=== PATIENT | female | born 1930 | race Asian ===

== ENCOUNTER 2018-05-26 21:33 | Inpatient (IN) | payer MEDICARE, MEDICAID ==
[~2018-05-26] VITALS: Ht 144.8 cm; Wt 59.0 kg
[2018-05-26] MEDS ORDERED: Albuterol ud Inhalation HHN ONE (22:00)
[2018-05-26] MEDS ORDERED: Ipratropium 0.02% Inh Soln 2.5ml UD HHN ONE (22:00)
[2018-05-26] MEDS ORDERED: CARDIZEM CD120 MG ORAL (22:02)
[2018-05-26] MEDS ORDERED: ASPIRIN EC81 MG ORAL (22:02)
[2018-05-26] MEDS ORDERED: NEXIUM40 MG ORAL (22:02)
[2018-05-26] MEDS ORDERED: METOPROLOL TART50 M1 ORAL (22:02)
[2018-05-26] MEDS ORDERED: ISOSORBIDE MONO30 M1 PO (22:02)
[2018-05-26] MEDS ORDERED: MONTELUKAST SOD10 MG ORAL (22:02)
[2018-05-26] MEDS ORDERED: AMBIEN5 MG ORAL (22:02)
[2018-05-26 22:14] LABS: BASOPHILS % (AUTO) 0.3 % (0.0-2.0); HEMATOCRIT 35.5 % (37.0-47.0); HEMOGLOBIN 12.9 G/DL (12.0-16.0); LYMPHOCYTES % (AUTO) 10.7 % (20.0-45.0); MEAN CORPUSCULAR VOLUME 90 FL (80-99); PLATELET COUNT 115 K/UL (150-450); RED BLOOD COUNT 3.93 M/UL (4.20-5.40); RED CELL DISTRIBUTION WIDTH 10.9 % (11.6-14.8)
[2018-05-26 22:27] LABS: INR 1.7 (0.9-1.1)
[2018-05-26 22:36] LABS: ANION GAP 15 mmol/L (5-15); BLOOD UREA NITROGEN 34 mg/dL (7-18); CARBON DIOXIDE 18 MMOL/L (21-32); CHLORIDE 89 MMOL/L (98-107); CREATININE 1.8 MG/DL (0.55-1.30); POTASSIUM 5.4 MMOL/L (3.5-5.1); SODIUM 122 MMOL/L (136-145)
--- NOTE | 2018-05-26 22:52 | Emergency Room Report ---
History of Present Illness General Chief Complaint: Dyspnea/Respdistress Source: Patient, Family Member Present Illness HPI This is an 87-year-old been increased female with a history of high blood pressure and questionable cardiac history. History is limited because her son is poor historian. He doesn't think she has any heart problem but based on her medication appeared that she has some type of coronary disease because she is taking isosorbide. Unknown atrial fibrillation history. Patient presents with chief complaint of shortness of breath. He brought the patient from home. [facility] Worse with exertion. No chest pain. She's been using inhaler without any relief. No edema. No nausea no vomiting. [place] like she can't catch her breath. Allergies: Coded Allergies: No Known Allergies (Unverified , 05/26/18) Patient History Past Medical History: see triage record, HTN Past Surgical History: other Pertinent Family History: none Social History: Denies: smoking Now: No Immunizations: other Reviewed Nursing Documentation: PMH: Agreed; PSxH: Agreed Nursing Documentation-PMH Past Medical History: No History, Except For Hx Hypertension: Yes Hx Asthma: Yes Hx Diabetes: Yes Review of Systems Eye: Denies: eye pain, blurred vision ENT: Denies: ear pain, nose congestion, throat swelling Respiratory: Reports: shortness of breath; Denies: cough Cardiovascular: Denies: chest pain, palpitations Gastrointestinal: Denies: abdominal pain, diarrhea, nausea, vomiting Musculoskeletal: Denies: back pain, joint pain Skin: Denies: rash Neurological: Denies: headache, numbness Endocrine: Denies: increased thirst, increased urine Hematologic/Lymphatic: Denies: easy bruising All Other Systems: negative except mentioned in HPI Physical Exam Vital Signs Date Time Temp Pulse Resp B/P (MAP) Pulse Ox O2 Delivery O2 Flow Rate FiO2 05/26/18 21:28 99.2 45 18 180/70 100 Simple Mask 99.1 05/26/18 22:28 2.0 28 vitals with high blood pressure Sp02 EP Interpretation: reviewed, normal General Appearance: well appearing, alert, mild distress Head: normocephalic, atraumatic Eyes: bilateral eye PERRL, bilateral eye EOMI ENT: hearing grossly normal, normal pharynx Neck: full range of motion, supple, no meningismus Respiratory: chest non-tender, normal breath sounds, rales Cardiovascular #1: no murmur, bradycardia, systolic murmur, irregularly irregular Gastrointestinal: normal bowel sounds, non tender, no mass, no organomegaly, no bruit, non-distended Musculoskeletal: back normal, normal range of motion Neurologic: alert, oriented x3 Psychiatric: mood/affect normal Skin: warm/dry Medical Decision Making Diagnostic Impression: Primary Impression: Acute exacerbation of CHF (congestive heart failure) Qualified Codes: I50.9 - Heart failure, unspecified Additional Impressions: Afib Qualified Codes: I48.91 - Unspecified atrial fibrillation Hypertension Qualified Codes: I10 - Essential (primary) hypertension Hyponatremia Hyperkalemia UTI (urinary tract infection) Qualified Codes: N30.00 - Acute cystitis without hematuria CKD (chronic kidney disease) Qualified Codes: N18.9 - Chronic kidney disease, unspecified EKG Diagnostic Results Rate: bradycardiac Rhythm: other - afib ST Segments: other - NSST changes Rhythm Strip Diag. Results Rhythm Strip Time: 22:52 EP Interpretation: yes Rate: 43 Rhythm: other - afib Chest X-Ray Diagnostic Results Chest X-Ray Diagnostic Results : Chest X-Ray Ordered: Yes # of Views/Limited/Complete: 1 View Indication: Shortness of Breath EP Interpretation: Yes Interpretation: no consolidation, other - CM with left effusion vs infiltrate Impression: Other - CM with left effusion Electronically Signed by: Kirit Banda MD Last Vital Signs Date Time Temp Pulse Resp B/P (MAP) Pulse Ox O2 Delivery O2 Flow Rate FiO2 05/26/18 22:38 48 20 100 Nasal Cannula 2.0 28 05/26/18 21:28 99.2 180/70 99.1 Status: improved Disposition: ADMITTED INPATIENT Condition: Serious KIRIT BANDA M.D. May 26, 2018 22:52
[2018-05-26 22:53] LABS: APPEARANCE,URINE CLEAR; BILIRUBIN, URINE 1+ (NEGATIVE); GLUCOSE, URINE (UA) NEGATIVE (NEGATIVE); KETONES,URINE 1+ (NEGATIVE); LEUKOCYTE ESTERASE ,URINE 1+ (NEGATIVE); NITRITE,URINE NEGATIVE (NEGATIVE); PH,URINE 5 (4.5-8.0); PROTEIN,URINE 2+ (NEGATIVE); UROBILINOGEN,URINE 4 MG/DL (0.0-1.0)
[2018-05-26 22:56] LABS: COLOR,URINE AMBER
[2018-05-26 23:01] LABS: ALANINE AMINOTRANSFERASE 512 U/L (12-78); ALBUMIN 3.7 G/DL (3.4-5.0); ALBUMIN/GLOBULIN RATIO 1.2 (1.0-2.7); ALKALINE PHOSPHATASE 82 U/L (46-116); ASPARTATE AMINO TRANSFERASE 971 U/L (15-37); CKMB 1.2 NG/ML (0.0-3.6); CREATINE KINASE 75 U/L (26-308)
[2018-05-26] MEDS ORDERED: cefTRIAXone 1 GM in NS 55 ML IVPB ONE (23:15)
[2018-05-26 23:40] VITALS: BP 103/59
[2018-05-27] MEDS ORDERED: Albuterol/Ipratropium 3ml neb INH PRN (05:45)
[2018-05-27] MEDS ORDERED: Nitroglycerin Subl 0.4mg tab SL PRN (05:45)
[2018-05-27] MEDS ORDERED: Zolpidem 5mg tab ORAL PRN (05:45)
[2018-05-27] MEDS ORDERED: Miralax 17gm pkt ORAL PRN (05:45)
[2018-05-27] MEDS ORDERED: Albuterol/Ipratropium 3ml neb INH SCH (07:00)
[2018-05-27 08:00] VITALS: BP 185/68
[2018-05-27] MEDS: Aspirin EC 81mg tab ORAL SCH (08:47)
[2018-05-27] MEDS: Montelukast 10mg tablet ORAL SCH (08:47)
[2018-05-27] MEDS: Docusate 100mg cap ORAL SCH ×2 (08:47→20:40)
[2018-05-27] MEDS: Imdur 30mg tab ORAL SCH (08:47)
[2018-05-27] MEDS: Heparin 5000 units/ml inj SUBQ SCH ×2 (08:51→20:40)
[2018-05-27] MEDS ORDERED: Aspirin Baby 81mg ORAL SCH (09:00)
--- NOTE | 2018-05-27 09:28 | Diagnostic Imaging Report ---
Indication: Shortness of breath Technique: One view of the chest Comparison: none Findings: The heart is enlarged. The left costophrenic angle is obscured, pleural effusion possible. The remainder the lungs and pleural spaces are clear. The thoracic aorta is tortuous, calcified, ectatic and possibly aneurysmal Impression: Possible left pleural effusion Mild cardiomegaly Ectatic and possibly aneurysmal thoracic aorta. Consider CT for further evaluation if clinically indicated
[2018-05-27 11:38] LABS: ANION GAP 10 mmol/L (5-15); BLOOD UREA NITROGEN 27 mg/dL (7-18); CALCIUM 9.1 MG/DL (8.5-10.1); CARBON DIOXIDE 29 MMOL/L (21-32); CHLORIDE 92 MMOL/L (98-107); CREATININE 1.2 MG/DL (0.55-1.30); POTASSIUM 3.7 MMOL/L (3.5-5.1); SODIUM 130 MMOL/L (136-145)
[2018-05-27 12:00] VITALS: BP 169/58
[2018-05-27] MEDS: cefTRIAXone 1 GM in D5W 55 ML IVPB SCH (12:18)
[2018-05-27] MEDS ORDERED: Isovue-300 100ml vial INJ PRN ×2 (12:30→12:45)
--- NOTE | 2018-05-27 12:37 | Cardiac Electrophysiology PN ---
Subjective Subjective [id number] Objective Last 24 Hour Vital Signs Date Time Temp Pulse Resp B/P (MAP) Pulse Ox O2 Delivery O2 Flow Rate FiO2 05/27/18 12:00 97.9 64 20 169/58 (95) 99 97.9 05/27/18 09:53 Nasal Cannula 2.0 05/27/18 09:33 99 Nasal Cannula 2.0 28 05/27/18 09:32 Nasal Cannula 2.0 28 05/27/18 08:47 185/68 05/27/18 08:00 98.2 67 20 185/68 (107) 98 98.2 05/27/18 08:00 64 05/27/18 03:47 65 05/27/18 03:15 Nasal Cannula 2.0 05/27/18 01:38 97.0 48 22 154/57 99 Nasal Cannula 2.0 05/26/18 23:50 41 22 Nasal Cannula 2.0 05/26/18 23:40 97.0 41 22 103/59 97 Nasal Cannula 2.0 97.0 05/26/18 22:38 48 20 100 Nasal Cannula 2.0 28 05/26/18 22:28 48 21 Nasal Cannula 2.0 28 05/26/18 22:28 48 21 98 Nasal Cannula 2.0 28 05/26/18 21:28 99.2 45 18 180/70 100 Simple Mask 99.1 Intake and Output 05/26/18 05/27/18 19:00 07:00 Intake Total 205 ml Balance 205 ml Intake Oral 100 ml IV Total 105 ml # Voids 3 Laboratory Tests Test 05/26/18 21:48 05/26/18 22:10 05/27/18 11:00 White Blood Count 12.0 K/UL (4.8-10.8) H Red Blood Count 3.93 M/UL (4.20-5.40) L Hemoglobin 12.9 G/DL (12.0-16.0) Hematocrit 35.5 % (37.0-47.0) L Mean Corpuscular Volume 90 FL (80-99) Mean Corpuscular Hemoglobin 32.8 PG (27.0-31.0) H Mean Corpuscular Hemoglobin Concent 36.2 G/DL (32.0-36.0) H Red Cell Distribution Width 10.9 % (11.6-14.8) L Platelet Count 115 K/UL (150-450) L Mean Platelet Volume 7.5 FL (6.5-10.1) Neutrophils (%) (Auto) 82.0 % (45.0-75.0) H Lymphocytes (%) (Auto) 10.7 % (20.0-45.0) L Monocytes (%) (Auto) 7.0 % (1.0-10.0) Eosinophils (%) (Auto) 0.0 % (0.0-3.0) Basophils (%) (Auto) 0.3 % (0.0-2.0) Prothrombin Time 17.6 SEC (9.30-11.50) H Prothromb Time International Ratio 1.7 (0.9-1.1) H Activated Partial Thromboplast Time 34 SEC (23-33) H Sodium Level 122 MMOL/L (136-145) L 130 MMOL/L (136-145) L Potassium Level 5.4 MMOL/L (3.5-5.1) H 3.7 MMOL/L (3.5-5.1) Chloride Level 89 MMOL/L (98-107) L 92 MMOL/L (98-107) L Carbon Dioxide Level 18 MMOL/L (21-32) L 29 MMOL/L (21-32) Anion Gap 15 mmol/L (5-15) 10 mmol/L (5-15) Blood Urea Nitrogen 34 mg/dL (7-18) H 27 mg/dL (7-18) H Creatinine 1.8 MG/DL (0.55-1.30) H 1.2 MG/DL (0.55-1.30) Estimat Glomerular Filtration Rate mL/min (>60) mL/min (>60) Glucose Level 125 MG/DL (74-106) H 122 MG/DL (74-106) H Calcium Level 9.0 MG/DL (8.5-10.1) 9.1 MG/DL (8.5-10.1) Total Bilirubin 1.0 MG/DL (0.2-1.0) Aspartate Amino Transf (AST/SGOT) 971 U/L (15-37) H Alanine Aminotransferase (ALT/SGPT) 512 U/L (12-78) H Alkaline Phosphatase 82 U/L (46-116) Total Creatine Kinase 75 U/L (26-308) Creatine Kinase MB 1.2 NG/ML (0.0-3.6) Creatine Kinase MB Relative Index 1.6 Troponin I 0.066 ng/mL (0.000-0.056) Pro-B-Type Natriuretic Peptide 93234 pg/mL (0-125) H Total Protein 6.9 G/DL (6.4-8.2) Albumin 3.7 G/DL (3.4-5.0) Globulin 3.2 g/dL Albumin/Globulin Ratio 1.2 (1.0-2.7) Urine Color My Urine Appearance Clear Urine pH 5 (4.5-8.0) Urine Specific [place] 1.025 (1.005-1.035) Urine Protein 2+ (NEGATIVE) H Urine Glucose (UA) Negative (NEGATIVE) Urine Ketones 1+ (NEGATIVE) H Urine Blood 1+ (NEGATIVE) H Urine Nitrite Negative (NEGATIVE) Urine Bilirubin 1+ (NEGATIVE) H Urine Ictotest Negative (NEGATIVE) Urine Urobilinogen 4 MG/DL (0.0-1.0) H Urine Leukocyte Esterase 1+ (NEGATIVE) H Urine RBC 5-10 /HPF (0 - 2) H Urine WBC 0-2 /HPF (0 - 2) Urine Squamous Epithelial Cells Occasional /LPF Urine Bacteria Moderate /HPF (NONE) H Microbiology Date/Time Source Procedure Growth Status 05/26/18 22:10 Urine,Clean Catch Urine Culture - Preliminary NO GROWTH Resulted Faisal Levy MD May 27, 2018 12:37
--- NOTE | 2018-05-27 12:40 | History & Physical ---
History and Physical History & Physicial Nba Hilario MD May 27, 2018 12:40
[2018-05-27] MEDS ORDERED: Promethazine/Codeine 5ml UD ORAL PRN (13:15)
--- NOTE | 2018-05-27 13:25 | Consultation ---
History of Present Illness General Date patient seen: May 27, 2018 Chief Complaint: Dyspnea/Respdistress Present Illness HPI 87-year-old female with hx of HTN, CAD, presented to ER with chief complaint of shortness of breath with some productive cough Worse with exertion. No chest pain. She's been using inhaler without any relief. Her systolic BP was 180 on presentation. She had mild leukocytosis, otherwise she looked comfortable. Allergies: Coded Allergies: No Known Allergies (Unverified , 05/26/18) Medication History Scheduled Aspirin Ec* (Aspirin Ec*), 81 MG ORAL DAILY, (Reported) Diltiazem Hcl* (Cardizem Cd*), 120 MG ORAL DAILY, (Reported) Esomeprazole Magnesium (Nexium), 40 MG ORAL DAILY, (Reported) Isosorbide Mononitrate (Isosorbide Mononitrate Er), 30 MG PO DAILY, (Reported) Metoprolol Tartrate* (Metoprolol Tartrate*), 50 MG ORAL DAILY, (Reported) Montelukast Sodium* (Montelukast Sodium*), 10 MG ORAL DAILY, (Reported) Scheduled PRN Zolpidem Tartrate* (Ambien*), 5 MG ORAL BEDTIME PRN for Insomnia, (Reported) Patient History Healthcare decision maker Resuscitation status Full Code Advanced Directive on File No Past Medical/Surgical History Past Medical/Surgical History: (1) CKD (chronic kidney disease) (2) Afib (3) Hypertension Review of Systems Constitutional: Reports: no symptoms Eye: Reports: no symptoms ENT: Reports: no symptoms Physical Exam General Appearance: WD/WN Lines, tubes and drains: peripheral HEENT: normocephalic, atraumatic Neck: non-tender, normal alignment Respiratory/Chest: chest wall non-tender, lungs clear Breasts: no masses Cardiovascular/Chest: normal peripheral pulses Abdomen: normal bowel sounds, non tender Extremities: normal range of motion Last 24 Hour Vital Signs Date Time Temp Pulse Resp B/P (MAP) Pulse Ox O2 Delivery O2 Flow Rate FiO2 05/27/18 12:00 97.9 64 20 169/58 (95) 99 97.9 05/27/18 09:53 Nasal Cannula 2.0 05/27/18 09:33 99 Nasal Cannula 2.0 28 05/27/18 09:32 Nasal Cannula 2.0 28 05/27/18 08:47 185/68 05/27/18 08:00 98.2 67 20 185/68 (107) 98 98.2 05/27/18 08:00 64 05/27/18 03:47 65 05/27/18 03:15 Nasal Cannula 2.0 05/27/18 01:38 97.0 48 22 154/57 99 Nasal Cannula 2.0 05/26/18 23:50 41 22 Nasal Cannula 2.0 05/26/18 23:40 97.0 41 22 103/59 97 Nasal Cannula 2.0 97.0 05/26/18 22:38 48 20 100 Nasal Cannula 2.0 28 05/26/18 22:28 48 21 Nasal Cannula 2.0 28 05/26/18 22:28 48 21 98 Nasal Cannula 2.0 28 05/26/18 21:28 99.2 45 18 180/70 100 Simple Mask 99.1 Intake and Output 05/26/18 05/27/18 19:00 07:00 Intake Total 205 ml Balance 205 ml Intake Oral 100 ml IV Total 105 ml # Voids 3 Laboratory Tests Test 05/26/18 21:48 05/26/18 22:10 05/27/18 11:00 White Blood Count 12.0 K/UL (4.8-10.8) H Red Blood Count 3.93 M/UL (4.20-5.40) L Hemoglobin 12.9 G/DL (12.0-16.0) Hematocrit 35.5 % (37.0-47.0) L Mean Corpuscular Volume 90 FL (80-99) Mean Corpuscular Hemoglobin 32.8 PG (27.0-31.0) H Mean Corpuscular Hemoglobin Concent 36.2 G/DL (32.0-36.0) H Red Cell Distribution Width 10.9 % (11.6-14.8) L Platelet Count 115 K/UL (150-450) L Mean Platelet Volume 7.5 FL (6.5-10.1) Neutrophils (%) (Auto) 82.0 % (45.0-75.0) H Lymphocytes (%) (Auto) 10.7 % (20.0-45.0) L Monocytes (%) (Auto) 7.0 % (1.0-10.0) Eosinophils (%) (Auto) 0.0 % (0.0-3.0) Basophils (%) (Auto) 0.3 % (0.0-2.0) Prothrombin Time 17.6 SEC (9.30-11.50) H Prothromb Time International Ratio 1.7 (0.9-1.1) H Activated Partial Thromboplast Time 34 SEC (23-33) H Sodium Level 122 MMOL/L (136-145) L 130 MMOL/L (136-145) L Potassium Level 5.4 MMOL/L (3.5-5.1) H 3.7 MMOL/L (3.5-5.1) Chloride Level 89 MMOL/L (98-107) L 92 MMOL/L (98-107) L Carbon Dioxide Level 18 MMOL/L (21-32) L 29 MMOL/L (21-32) Anion Gap 15 mmol/L (5-15) 10 mmol/L (5-15) Blood Urea Nitrogen 34 mg/dL (7-18) H 27 mg/dL (7-18) H Creatinine 1.8 MG/DL (0.55-1.30) H 1.2 MG/DL (0.55-1.30) Estimat Glomerular Filtration Rate mL/min (>60) mL/min (>60) Glucose Level 125 MG/DL (74-106) H 122 MG/DL (74-106) H Calcium Level 9.0 MG/DL (8.5-10.1) 9.1 MG/DL (8.5-10.1) Total Bilirubin 1.0 MG/DL (0.2-1.0) Aspartate Amino Transf (AST/SGOT) 971 U/L (15-37) H Alanine Aminotransferase (ALT/SGPT) 512 U/L (12-78) H Alkaline Phosphatase 82 U/L (46-116) Total Creatine Kinase 75 U/L (26-308) Creatine Kinase MB 1.2 NG/ML (0.0-3.6) Creatine Kinase MB Relative Index 1.6 Troponin I 0.066 ng/mL (0.000-0.056) Pro-B-Type Natriuretic Peptide 98134 pg/mL (0-125) H Total Protein 6.9 G/DL (6.4-8.2) Albumin 3.7 G/DL (3.4-5.0) Globulin 3.2 g/dL Albumin/Globulin Ratio 1.2 (1.0-2.7) Urine Color My Urine Appearance Clear Urine pH 5 (4.5-8.0) Urine Specific [place] 1.025 (1.005-1.035) Urine Protein 2+ (NEGATIVE) H Urine Glucose (UA) Negative (NEGATIVE) Urine Ketones 1+ (NEGATIVE) H Urine Blood 1+ (NEGATIVE) H Urine Nitrite Negative (NEGATIVE) Urine Bilirubin 1+ (NEGATIVE) H Urine Ictotest Negative (NEGATIVE) Urine Urobilinogen 4 MG/DL (0.0-1.0) H Urine Leukocyte Esterase 1+ (NEGATIVE) H Urine RBC 5-10 /HPF (0 - 2) H Urine WBC 0-2 /HPF (0 - 2) Urine Squamous Epithelial Cells Occasional /LPF Urine Bacteria Moderate /HPF (NONE) H Microbiology Date/Time Source Procedure Growth Status 05/26/18 22:10 Urine,Clean Catch Urine Culture - Preliminary NO GROWTH Resulted Height (Feet): 4 Height (Inches): 9.00 Weight (Pounds): 130 Medications Current Medications Medications (Trade) Dose Ordered Sig/Benedict Route PRN Reason Start Time Stop Time Status Last Admin Dose Admin Acetaminophen (Tylenol) 650 mg Q4H PRN ORAL Mild Pain (Pain Scale 1-3) 05/27/18 05:45 06/26/18 05:44 Albuterol/ Ipratropium (Albuterol/ Ipratropium) 3 ml Q4H PRN INH Shortness of Breath 05/27/18 05:45 06/01/18 05:44 Albuterol/ Ipratropium (Albuterol/ Ipratropium) 3 ml Q8HRT INH 05/27/18 07:00 06/01/18 06:59 Aspirin (Ecotrin) 81 mg DAILY ORAL 05/27/18 09:00 06/26/18 08:59 05/27/18 08:47 Barium Sulfate (Readi-Cat 2) 450 ml NOW PRN ORAL Radiology Procedure 05/27/18 12:30 05/29/18 12:28 Bisacodyl (Dulcolax) 10 mg DAILYPRN PRN RECTAL Constipation 05/27/18 05:45 06/26/18 05:44 Ceftriaxone Sodium 1 gm/ Dextrose 55 ml @ 110 mls/hr DAILY IVPB 05/27/18 12:30 06/03/18 12:29 05/27/18 12:18 Dextrose (Dextrose 50%) 25 ml STAT PRN IV Hypoglycemia 05/27/18 05:45 06/26/18 05:44 Dextrose (Dextrose 50%) 50 ml STAT PRN IV Hypoglycemia 05/27/18 05:45 06/26/18 05:44 Diltiazem HCl (Cardizem) 30 mg EVERY 8 HOURS ORAL 05/27/18 14:00 06/26/18 13:59 Docusate Sodium (Colace) 100 mg EVERY 12 HOURS ORAL 05/27/18 09:00 06/26/18 08:59 05/27/18 08:47 Furosemide (Lasix) 40 mg DAILY IV 05/27/18 09:00 06/26/18 08:59 05/27/18 08:47 Heparin Sodium (Porcine) (Heparin 5000 units/ml) 5,000 units EVERY 12 HOURS SUBQ 05/27/18 09:00 06/26/18 08:59 Hydralazine HCl (Apresoline) 10 mg Q6H PRN IV For High Blood Pressure 05/27/18 12:15 06/26/18 12:14 Iopamidol (Isovue-300 100ml) 100 ml NOW PRN INJ Radiology Procedure 05/27/18 12:30 05/29/18 12:29 Iopamidol (Isovue-300 100ml) 100 ml NOW PRN INJ Radiology Procedure 05/27/18 12:45 05/29/18 12:38 Irbesartan (Avapro) 75 mg DAILY ORAL 05/27/18 12:45 06/26/18 12:44 Isosorbide Mononitrate (Imdur) 30 mg DAILY ORAL 05/27/18 09:00 06/26/18 08:59 05/27/18 08:47 Montelukast Sodium (Singulair) 10 mg DAILY ORAL 05/27/18 09:00 06/26/18 08:59 05/27/18 08:47 Nitroglycerin (Ntg) 0.4 mg Q5M PRN SL Prn Chest Pain 05/27/18 05:45 06/26/18 05:44 Ondansetron HCl (Zofran) 4 mg Q6H PRN IVP Nausea & Vomiting 05/27/18 05:45 06/26/18 05:44 Pantoprazole (Protonix) 40 mg DAILY ORAL 05/27/18 09:00 06/26/18 08:59 05/27/18 08:47 Polyethylene Glycol (Miralax) 17 gm DAILYPRN PRN ORAL Constipation 05/27/18 05:45 06/26/18 05:44 Zolpidem Tartrate (Ambien) 5 mg BEDTIME PRN ORAL Insomnia 05/27/18 05:45 06/03/18 05:44 Assessment/Plan Problem List: (1) Hypertensive emergency ICD Codes: I16.1 - Hypertensive emergency SNOMED: 923151551324049 (2) Acute bronchitis ICD Codes: J20.9 - Acute bronchitis, unspecified SNOMED: 84041160 (3) Hyponatremia ICD Codes: E87.1 - Hypo-osmolality and hyponatremia SNOMED: 05622541 (4) Hypertension ICD Codes: I10 - Essential (primary) hypertension SNOMED: 78111208 Qualifiers: Qualified Codes: I10 - Essential (primary) hypertension Assessment/Plan respiratory treatment check sputum titrate fio2 to sat of 92% iv abx check echo dvt prophylaxis f/u BNP hyponatremia w/u Tyson Vincent MD May 27, 2018 13:25
[2018-05-27] MEDS: dilTIAZem HCl 30mg tab ORAL SCH ×2 (13:59→21:01)
--- NOTE | 2018-05-27 14:45 | Diagnostic Imaging Report ---
Indication: Increased renal function tests Technique: Grayscale and duplex images of the kidneys, retroperitoneum, and bladder were obtained. Comparison: none Findings: Right kidney measures 9.2 cm in length. Left kidney measures 11.1 cm in length. Both kidneys demonstrate normal echogenicity. No hydronephrosis. Within the left renal sinus, nonshadowing echogenic focus measures 11 mm in diameter. Normal inferior vena cava. Bladder is distended prevoid, prevoid bladder volume calculated at 421 mL. 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
[2018-05-27 16:00] VITALS: BP 176/60
[2018-05-27] MEDS ORDERED: BENICAR40 MG ORAL (16:43)
[2018-05-27] MEDS ORDERED: CRESTOR10 M1 ORAL (16:43)
[2018-05-27] MEDS ORDERED: CLONIDINE HCL0.2 MG PO (16:43)
--- NOTE | 2018-05-27 17:00 | Diagnostic Imaging Report ---
INDICATION: Abdominal pain, abdominal tenderness, shortness of breath TECHNIQUE: Patient ingested enteric contrast. IV administration nonionic contrast Spiral acquisitions obtained through the Multiplanar reconstructions were generated. Total dose length product 1206.6 mGycm. CTDIvol(s) 16.65,12.72 mGy. Radiation dose was minimized using automated exposure control COMPARISON: none FINDINGS: Chest: Lungs demonstrate mild interstitial prominence, probably on the basis of senescent changes. No focal airspace consolidation. No effusions. The heart is enlarged, demonstrating four-chamber cardiomegaly. The ascending thoracic aorta is ectatic bordering the proximal, measuring up to 4.7 cm in diameter. The aortic arch is borderline aneurysmal, measuring up to 4 cm. The descending thoracic aorta is ectatic but not frankly aneurysmal. No evidence of dissection. No evidence of rupture or leakage. There is possibly stenosis of the downstream left innominate vein. As result, numerous mediastinal collateral vessels are noted as well as less numerous chest wall collateral vessels. The main pulmonary artery is dilated, measuring 4.1 cm in diameter. No pericardial effusion. No mediastinal or hilar mass or adenopathy. Unremarkable esophagus. The bones demonstrate degenerative spondylosis changes. Abdomen pelvis: No evidence of abdominal aortic aneurysm or dissection. The gallbladder is surgically absent. Bile ducts are nondilated. The liver is unremarkable. The pancreas is somewhat atrophic. The spleen, adrenals are unremarkable. The kidneys demonstrate bilateral subcentimeter low-attenuation lesions which are too small to characterize. There is possibly some scarring of the left kidney. No retroperitoneal or mesenteric mass or adenopathy. The uterus demonstrates arcuate artery calcifications. No pelvic mass or adenopathy. The bladder is distended The rectum is mildly distended with stool. There are a few scattered colonic diverticula. No evidence of diverticulitis. The appendix is normal. No small bowel distention. Contrast has traversed the entirety of the small bowel and reached the cecum. No small bowel wall thickening. No free or loculated intraperitoneal gas or fluid. The stomach and duodenum are unremarkable. The bones demonstrate degenerative spondylosis changes. IMPRESSION: No definite acute thoracic process. Borderline aneurysmal dilatation of the ascending thoracic aorta and aortic arch. No evidence of dissection, leakage or rupture Possible stenosis of the downstream left innominate vein, with some collateral vessel formation Dilated main pulmonary artery, consistent with pulmonary arterial hypertension Cardiomegaly No definite acute abdominal or pelvic process Distended bladder Mild rectal fecal distention, could represent very early rectal fecal impaction Colonic diverticulosis. No evidence of diverticulitis Incidental findings as noted, including degenerative spondylosis, prior cholecystectomy, somewhat atrophic pancreas, too small to characterize bilateral subcentimeter low-attenuation renal lesions (most likely simple cysts, no further follow-up necessary) The CT scanner at [facility] is accredited by the [employer] and the scans are performed using protocols designed to limit radiation exposure to as low as reasonably achievable to attain images of sufficient resolution adequate for diagnostic evaluation.
--- NOTE | 2018-05-27 17:30 | Consultation ---
DATE OF CONSULTATION: 05/27/2018 CARDIOLOGY CONSULTATION CONSULTING PHYSICIAN: Faisal Levy M.D. REFERRING PHYSICIAN: Nba Hilario M.D. REASON FOR CONSULTATION: Nausea, hypertension, and atrial fibrillation. HISTORY OF PRESENT ILLNESS: The patient is an 87-year-old lady with history of hypertension, questionable cardiac history, was brought into the emergency room for abdominal pain and shortness of breath and lower extremity edema. The patient and the daughter are not aware of prior history of atrial fibrillation or coronary artery disease or congestive heart failure. The patient is taking metoprolol and Cardizem as well as isosorbide and aspirin. In the emergency room, the patient was found to be in atrial fibrillation with slow ventricular response. The patient was admitted and a Cardiology consultation was obtained for further evaluation and management. REVIEW OF SYSTEMS: Review of systems was negative other than what is mentioned in the history of present illness except for abdominal pain. PAST MEDICAL HISTORY: 1. History of hypertension. 2. Diabetes. 3. Asthma. 4. Questionable cardiac history. FAMILY HISTORY: Noncontributory. SOCIAL HISTORY: She lives at home. Does not smoke or drink alcohol. PHYSICAL EXAMINATION: VITAL SIGNS: Blood pressure 180/70, pulse is 45, respirations 18 and she is afebrile. HEAD AND NECK: Shows no JVD. LUNGS: Clear. CARDIOVASCULAR: Shows irregular S1 and S2 and bradycardic. ABDOMEN: Soft. EXTREMITIES: A 1+ pitting edema. LABORATORY AND DIAGNOSTIC DATA: Labs show white count 12, hemoglobin 12.9, hematocrit 35, and platelet count of 115,000. Sodium 130, potassium 3.7, BUN of 27, creatinine 1.2 and glucose 122. Troponin is 0.066. Initial BUN was 35 and creatinine 1.8. ASSESSMENT AND PLAN: 1. Troponin elevation. It could be due to renal failure. the patient does not have any chest pain. However, the patient's EKG showed some repolarization abnormality. We will completely rule out RI protocol. We will get an echocardiogram for further evaluation. 2. Atrial fibrillation with slow ventricular response. Heart rate in the 40s. I will discontinue Cardizem. Continue the patient on low-dose beta-val. We will watch the patient on telemetry. The patient would need anticoagulation. 3. Elevated BNP of more than 10,000. Again, echocardiogram is pending. I will start the patient on Lasix 40 mg IV daily. 4. Hypertension. Continue Lasix, Imdur, and I will add Norvasc to her medical regimen. I will hold off on calcium channel-val. We will hold off on Cardizem. 5. Abdominal pain. 6. Urinary tract infection, on IV antibiotics. Thank you very much, Dr. Hilario, for allowing me to participate in the care of this patient. Please do not hesitate to contact me for any questions regarding my evaluation. Faisal Levy M.D. DR: PAL JOB#: [id number] CC:
--- NOTE | 2018-05-27 17:45 | History and Physical Report ---
DATE OF ADMISSION: 05/26/2018 CHIEF COMPLAINT: Shortness of breath, dizziness and epigastric pain. HISTORY OF PRESENT ILLNESS: This is an 87-year-old Turkish female with past medical history significant for hypertension, cardiac arrhythmias, who has presented to the emergency room accompanied with the family member, complained about the syncopal episode. The patient has been having abdominal pain on and off associated with nausea and vomiting for a month. She has been taking Nexium, but has not been helpful. Pain mostly located in the epigastric area associated with shortness of breath. Two days ago, she had another episode of abdominal pain associated with worsening of breathing pattern and it resolved however yesterday, got exacerbated again. History is very limited secondary to the patient's status. She has poor historian as well as family member, daughter and son does not know much about her history. Pain started in [place], worsening with exertion and no chest pain. She has been using inhaler without any relief. No edema, nausea or vomiting at this time. However, she stated she cannot breath. Shortly after initial evaluation in the emergency, the patient was noted in atrial fibrillation with bradycardia and the patient subsequently was admitted to the hospital with heart failure, hyponatremia, and atrial fibrillation with bradycardia heart rate of 43. PAST MEDICAL HISTORY/PAST SURGICAL HISTORY: As above. History of hypertension, congestive heart failure, and atrial fibrillation. The patient does have history of cataract surgery. Denies any history of diabetes or cancer. ALLERGIES: No known drug allergies. SOCIAL HISTORY: The patient denies any dysuria, frequency or hematuria. Complained about epigastric pain and shortness of breath. Denies any hemoptysis or hematochezia. Denies any suicidal or homicidal ideation. Denies any loss of consciousness. PHYSICAL EXAMINATION: GENERAL: The patient is awake, responsive, in no acute distress. VITAL SIGNS: On admission, temperature 99.2 degrees, pulse of 45, respiration 18, and blood pressure 180/70. HEAD AND NECK: Pupils are equal and reactive to light. Anicteric. Neck was supple. No JVD. LUNGS: Good air entry. No wheezes or rales. HEART: S1 and S2. Irregular. Systolic ejection murmur at the left sternal border. ABDOMEN: Soft and nondistended. Tender in epigastric area. No rebound tenderness. No fluid shift. EXTREMITIES: No cyanosis, clubbing, or edema. NEUROLOGIC: Cranial nerves II through XII grossly intact. Motor is 5/5 in all extremities. Gait was not assessed. RECTAL/GENITOURINARY: Refused and deferred. PSYCHIATRIC: Mood and affect is intact. LABORATORY AND DIAGNOSTIC DATA: On admission, sodium 122, potassium 5.4, chloride 89, bicarbonate 18, BUN 34, creatinine 1.8 and glucose is 125. AST of 971 and ALT of 512. The patient's troponin 0.06. ProBNP 10,787. PT of 17, INR 1.7 and PTT of 34. WBC of 12, hemoglobin of 12, hematocrit 35, and platelet is 115,000. Urinalysis, moderate bacteria, 5 to 10 rbc's, +1 leukocytes, +1 ketones and +2 protein. Chest x-ray is noted. The patient has possible left pleural effusion with mild cardiomegaly, atactic and possible aneurysmatic thoracic aorta. Consider CT for the further evaluation if it is clinically indicated. EKG is atrial fibrillation with bradycardia, ventricular rate 50. ASSESSMENT: 1. Acute congestive heart failure on chronic. 2. Acute urinary tract infection. 3. Epigastric pain with abnormal liver function tests. 4. Hyponatremia. 5. Acute kidney injury. 6. Atrial fibrillation with bradycardia. 7. Hypertension. PLAN: Admit the patient to monitored unit. Discussed with the daughter extensively at bedside. We will monitor laboratory closely. Lasix IV. Nebulizer treatment. CT scan of the chest, abdomen and pelvis. We will follow up with 2D echo. Discussed case with Dr. Enriquez from Gastroenterology, Dr. Levy, from Cardiology Electrophysiology, and Dr. Jonny Camacho from Nephrology. We follow up with 2D echo. Code Status, Full code. DVT prophylaxis with heparin subcutaneous. Nba Hilario M.D. DR: KOMAL JOB#: [id number] CC:
[2018-05-27 20:00] VITALS: BP 160/56
[2018-05-27] MEDS: Albuterol/Ipratropium 3ml neb HHN SCH (20:10)
--- NOTE | 2018-05-27 20:35 | General Progress Note ---
Assessment/Plan Assessment/Plan GI Consult Assessment - Nausea - Weight loss - Transaminitis, ? etiology - Negative CT imaging, s/p kayla state Recommendations - minimize medication, avoid hepatotoxic meds - check hepatitis serologies - Check viral markers - Check autoimmune markers - follow LFT - check stool OB Thank you Jayne Enriquez MD Subjective Allergies: Coded Allergies: No Known Allergies (Unverified , 05/26/18) Objective Last 24 Hour Vital Signs Date Time Temp Pulse Resp B/P (MAP) Pulse Ox O2 Delivery O2 Flow Rate FiO2 05/27/18 20:11 75 20 98 Nasal Cannula 2.0 28 05/27/18 20:10 Nasal Cannula 2.0 28 05/27/18 20:10 97 Nasal Cannula 2.0 28 05/27/18 20:02 36 05/27/18 20:02 73 18 97 Nasal Cannula 2.0 28 05/27/18 20:00 99.7 74 20 160/56 (90) 96 99.7 05/27/18 17:47 178/64 05/27/18 16:00 68 05/27/18 16:00 98.2 64 20 176/60 (98) 95 98.2 05/27/18 13:59 64 169/58 05/27/18 13:59 169/58 05/27/18 12:00 97.9 64 20 169/58 (95) 99 97.9 05/27/18 12:00 62 05/27/18 09:53 Nasal Cannula 2.0 05/27/18 09:33 99 Nasal Cannula 2.0 05/27/18 09:32 Nasal Cannula 2.0 05/27/18 08:47 185/68 05/27/18 08:00 98.2 67 20 185/68 (107) 98 98.2 05/27/18 08:00 64 05/27/18 03:47 65 05/27/18 03:15 Nasal Cannula 2.0 05/27/18 01:38 97.0 48 22 154/57 99 Nasal Cannula 2.0 05/26/18 23:50 41 22 Nasal Cannula 2.0 05/26/18 23:40 97.0 41 22 103/59 97 Nasal Cannula 2.0 97.0 05/26/18 22:38 48 20 100 Nasal Cannula 2.0 28 9/13/18 22:28 48 21 Nasal Cannula 2.0 28 05/26/18 22:28 48 21 98 Nasal Cannula 2.0 28 05/26/18 21:28 99.2 45 18 180/70 100 Simple Mask 99.1 Intake and Output 05/26/18 05/27/18 19:00 07:00 Intake Total 205 ml Balance 205 ml Intake Oral 100 ml IV Total 105 ml # Voids 3 Laboratory Tests 05/26/18 21:48: White Blood Count 12.0H, Red Blood Count 3.93L, Hemoglobin 12.9, Hematocrit 35.5L, Mean Corpuscular Volume 90, Mean Corpuscular Hemoglobin 32.8H, Mean Corpuscular Hemoglobin Concent 36.2H, Red Cell Distribution Width 10.9L, Platelet Count 115L, Mean Platelet Volume 7.5, Neutrophils (%) (Auto) 82.0H, Lymphocytes (%) (Auto) 10.7L, Monocytes (%) (Auto) 7.0, Eosinophils (%) (Auto) 0.0, Basophils (%) (Auto) 0.3, Prothrombin Time 17.6H, Prothromb Time International Ratio 1.7H, Activated Partial Thromboplast Time 34H, Sodium Level 122L, Potassium Level 5.4H, Chloride Level 89L, Carbon Dioxide Level 18L, Anion Gap 15, Blood Urea Nitrogen 34H, Creatinine 1.8H, Estimat Glomerular Filtration Rate , Glucose Level 125H, Calcium Level 9.0, Total Bilirubin 1.0, Aspartate Amino Transf (AST/SGOT) 971H, Alanine Aminotransferase (ALT/SGPT) 512H, Alkaline Phosphatase 82, Total Creatine Kinase 75, Creatine Kinase MB 1.2, Creatine Kinase MB Relative Index 1.6, Troponin I 0.066H, Pro-B-Type Natriuretic Peptide 21791B, Total Protein 6.9, Albumin 3.7, Globulin 3.2, Albumin/Globulin Ratio 1.2 05/26/18 22:10: Urine Color My, Urine Appearance Clear, Urine pH 5, Urine Specific [place] 1.025, Urine Protein 2+H, Urine Glucose (UA) Negative, Urine Ketones 1+H, Urine Blood 1+H, Urine Nitrite Negative, Urine Bilirubin 1+H, Urine Ictotest Negative , Urine Urobilinogen 4H, Urine Leukocyte Esterase 1+H, Urine RBC 5-10H, Urine WBC 0-2, Urine Squamous Epithelial Cells Occasional, Urine Bacteria ModerateH 05/27/18 11:00: Sodium Level 130L, Potassium Level 3.7, Chloride Level 92L, Carbon Dioxide Level 29, Anion Gap 10, Blood Urea Nitrogen 27H, Creatinine 1.2, Estimat Glomerular Filtration Rate , Glucose Level 122H, Calcium Level 9.1 Height (Feet): 4 Height (Inches): 9.00 Weight (Pounds): 130 Osman Enriquez MD May 27, 2018 20:35
--- NOTE | 2018-05-27 23:28 | Consultation ---
History of Present Illness General Chief Complaint: Dyspnea/Respdistress Present Illness HPI 87-year-old French female with past medical history significant for hypertension, cardiac arrhythmias, who has presented to the emergency room accompanied with the family member, complained about the syncopal episode. the pt has anxiety and cognitive impairment Allergies: Coded Allergies: No Known Allergies (Unverified , 05/26/18) Medication History Scheduled Aspirin Ec* (Aspirin Ec*), 81 MG ORAL DAILY, (Reported) Diltiazem Hcl* (Cardizem Cd*), 120 MG ORAL DAILY, (Reported) Esomeprazole Magnesium (Nexium), 40 MG ORAL DAILY, (Reported) Isosorbide Mononitrate (Isosorbide Mononitrate Er), 30 MG PO DAILY, (Reported) Metoprolol Tartrate* (Metoprolol Tartrate*), 50 MG ORAL DAILY, (Reported) Montelukast Sodium* (Montelukast Sodium*), 10 MG ORAL DAILY, (Reported) Olmesartan Medoxomil (Benicar), 40 MG ORAL DAILY, (Reported) Rosuvastatin Calcium (Crestor), 5 MG ORAL DAILY, (Reported) Scheduled PRN Clonidine Hcl (Clonidine Hcl), 0.2 MG PO Q6HR PRN for For High Blood Pressure, ( Reported) Zolpidem Tartrate* (Ambien*), 5 MG ORAL BEDTIME PRN for Insomnia, (Reported) Patient History Healthcare decision maker Resuscitation status Full Code Advanced Directive on File No Past Medical/Surgical History Past Medical/Surgical History: (1) Acute bronchitis (2) Hypertensive emergency (3) Atrial fibrillation (4) Syncope (5) Vertigo (6) HTN (hypertension) (7) Dyspnea Review of Systems Psychiatric: Reports: prior hx, anxiety, depressed feelings, emotional problems Physical Exam General Appearance: no apparent distress, alert, agitated Neurologic: depressed affect Last 24 Hour Vital Signs Date Time Temp Pulse Resp B/P (MAP) Pulse Ox O2 Delivery O2 Flow Rate FiO2 05/27/18 21:01 75 160/56 05/27/18 21:00 Nasal Cannula 2.0 05/27/18 20:11 75 20 98 Nasal Cannula 2.0 28 05/27/18 20:10 Nasal Cannula 2.0 28 05/27/18 20:10 97 Nasal Cannula 2.0 28 05/27/18 20:02 36 05/27/18 20:02 73 18 97 Nasal Cannula 2.0 28 05/27/18 20:00 99.7 74 20 160/56 (90) 96 99.7 05/27/18 20:00 63 05/27/18 17:47 178/64 05/27/18 16:00 68 05/27/18 16:00 98.2 64 20 176/60 (98) 95 98.2 05/27/18 13:59 64 169/58 05/27/18 13:59 169/58 05/27/18 12:00 97.9 64 20 169/58 (95) 99 97.9 05/27/18 12:00 62 05/27/18 09:53 Nasal Cannula 2.0 05/27/18 09:33 99 Nasal Cannula 2.0 28 05/27/18 09:32 Nasal Cannula 2.0 28 05/27/18 08:47 185/68 05/27/18 08:00 98.2 67 20 185/68 (107) 98 98.2 05/27/18 08:00 64 05/27/18 03:47 65 05/27/18 03:15 Nasal Cannula 2.0 05/27/18 01:38 97.0 48 22 154/57 99 Nasal Cannula 2.0 05/26/18 23:50 41 22 Nasal Cannula 2.0 05/26/18 23:40 97.0 41 22 103/59 97 Nasal Cannula 2.0 97.0 Intake and Output 05/26/18 05/27/18 19:00 07:00 Intake Total 205 ml Balance 205 ml Intake Oral 100 ml IV Total 105 ml # Voids 3 Laboratory Tests Test 05/27/18 11:00 Sodium Level 130 MMOL/L (136-145) L Potassium Level 3.7 MMOL/L (3.5-5.1) Chloride Level 92 MMOL/L (98-107) L Carbon Dioxide Level 29 MMOL/L (21-32) Anion Gap 10 mmol/L (5-15) Blood Urea Nitrogen 27 mg/dL (7-18) H Creatinine 1.2 MG/DL (0.55-1.30) Estimat Glomerular Filtration Rate mL/min (>60) Glucose Level 122 MG/DL (74-106) H Calcium Level 9.1 MG/DL (8.5-10.1) Height (Feet): 4 Height (Inches): 9.00 Weight (Pounds): 130 Medications Current Medications Medications (Trade) Dose Ordered Sig/Benedict Route PRN Reason Start Time Stop Time Status Last Admin Dose Admin Acetaminophen (Tylenol) 650 mg Q4H PRN ORAL Mild Pain (Pain Scale 1-3) 05/27/18 05:45 06/26/18 05:44 Albuterol/ Ipratropium (Albuterol/ Ipratropium) 3 ml Q4H PRN INH Shortness of Breath 05/27/18 05:45 06/01/18 05:44 Albuterol/ Ipratropium (Albuterol/ Ipratropium) 3 ml Q6HRT HHN 05/27/18 19:00 06/01/18 18:59 05/27/18 20:10 Aspirin (Ecotrin) 81 mg DAILY ORAL 05/27/18 09:00 06/26/18 08:59 05/27/18 08:47 Barium Sulfate (Readi-Cat 2) 450 ml NOW PRN ORAL Radiology Procedure 05/27/18 12:30 05/29/18 12:28 Bisacodyl (Dulcolax) 10 mg DAILYPRN PRN RECTAL Constipation 05/27/18 05:45 06/26/18 05:44 Ceftriaxone Sodium 1 gm/ Dextrose 55 ml @ 110 mls/hr DAILY IVPB 05/27/18 12:30 06/03/18 12:29 05/27/18 12:18 Dextrose (Dextrose 50%) 25 ml STAT PRN IV Hypoglycemia 05/27/18 05:45 06/26/18 05:44 Dextrose (Dextrose 50%) 50 ml STAT PRN IV Hypoglycemia 05/27/18 05:45 06/26/18 05:44 Diltiazem HCl (Cardizem) 30 mg EVERY 8 HOURS ORAL 05/27/18 14:00 06/26/18 13:59 05/27/18 21:01 Docusate Sodium (Colace) 100 mg EVERY 12 HOURS ORAL 05/27/18 09:00 06/26/18 08:59 05/27/18 20:40 Heparin Sodium (Porcine) (Heparin 5000 units/ml) 5,000 units EVERY 12 HOURS SUBQ 05/27/18 09:00 06/26/18 08:59 Hydralazine HCl (Apresoline) 10 mg Q6H PRN IV For High Blood Pressure 05/27/18 12:15 06/26/18 12:14 05/27/18 17:47 Iopamidol (Isovue-300 100ml) 100 ml NOW PRN INJ Radiology Procedure 05/27/18 12:30 05/29/18 12:29 Iopamidol (Isovue-300 100ml) 100 ml NOW PRN INJ Radiology Procedure 05/27/18 12:45 05/29/18 12:38 Irbesartan (Avapro) 75 mg DAILY ORAL 05/27/18 12:45 06/26/18 12:44 05/27/18 13:59 Isosorbide Mononitrate (Imdur) 30 mg DAILY ORAL 05/27/18 09:00 06/26/18 08:59 05/27/18 08:47 Montelukast Sodium (Singulair) 10 mg DAILY ORAL 05/27/18 09:00 06/26/18 08:59 05/27/18 08:47 Nitroglycerin (Ntg) 0.4 mg Q5M PRN SL Prn Chest Pain 05/27/18 05:45 06/26/18 05:44 Ondansetron HCl (Zofran) 4 mg Q6H PRN IVP Nausea & Vomiting 05/27/18 05:45 06/26/18 05:44 05/27/18 21:00 Pantoprazole (Protonix) 40 mg DAILY ORAL 05/27/18 09:00 06/26/18 08:59 05/27/18 08:47 Polyethylene Glycol (Miralax) 17 gm DAILYPRN PRN ORAL Constipation 05/27/18 05:45 06/26/18 05:44 Promethazine HCl/ Codeine (Phenergan with Codeine) 5 ml Q4H PRN ORAL For Cough 05/27/18 13:15 06/26/18 13:14 Zolpidem Tartrate (Ambien) 5 mg BEDTIME PRN ORAL Insomnia 05/27/18 05:45 06/03/18 05:44 Assessment/Plan Assessment/Plan encephalopathy due to [facility] Anxiety d/o -cont current meds -provided ro/Martin Escobar MD May 27, 2018 23:28
[2018-05-28] VITALS: BP 117/56
[2018-05-28] MEDS: Albuterol/Ipratropium 3ml neb HHN SCH ×4 (01:39→19:54)
[2018-05-28 04:00] VITALS: BP 135/60
[2018-05-28 06:02] LABS: BASOPHILS % (AUTO) 0.8 % (0.0-2.0); EOSINOPHILS % (AUTO) 0.3 % (0.0-3.0); HEMATOCRIT 39.6 % (37.0-47.0); HEMOGLOBIN 14.1 G/DL (12.0-16.0); LYMPHOCYTES % (AUTO) 13.1 % (20.0-45.0); MEAN CORPUSCULAR VOLUME 91 FL (80-99); MONOCYTES % (AUTO) 9.8 % (1.0-10.0); PLATELET COUNT 127 K/UL (150-450); RED BLOOD COUNT 4.37 M/UL (4.20-5.40); RED CELL DISTRIBUTION WIDTH 10.9 % (11.6-14.8)
[2018-05-28] MEDS: dilTIAZem HCl 30mg tab ORAL SCH ×3 (06:07→22:11)
[2018-05-28 06:22] LABS: INR 1.2 (0.9-1.1)
[2018-05-28 06:25] LABS: PHOSPHORUS 2.5 MG/DL (2.5-4.9)
[2018-05-28 06:28] LABS: ALANINE AMINOTRANSFERASE 465 U/L (12-78); ALBUMIN 3.8 G/DL (3.4-5.0); ALBUMIN/GLOBULIN RATIO 1.2 (1.0-2.7); ALKALINE PHOSPHATASE 81 U/L (46-116); ANION GAP 6 mmol/L (5-15); ASPARTATE AMINO TRANSFERASE 363 U/L (15-37); BILIRUBIN,TOTAL 0.9 MG/DL (0.2-1.0); BLOOD UREA NITROGEN 18 mg/dL (7-18); CALCIUM 9.1 MG/DL (8.5-10.1); CARBON DIOXIDE 29 MMOL/L (21-32); CHLORIDE 94 MMOL/L (98-107); CREATININE 0.9 MG/DL (0.55-1.30); POTASSIUM 3.6 MMOL/L (3.5-5.1); SODIUM 129 MMOL/L (136-145)
--- NOTE | 2018-05-28 06:53 | General Progress Note ---
Assessment/Plan Assessment/Plan Assessment - Nausea - Weight loss - Transaminitis, ? etiology - Negative CT imaging, s/p kayla state -constipation Recommendations - minimize medication, avoid hepatotoxic meds - fu hepatitis serologies - fu viral markers - fu autoimmune markers - follow LFT - check stool OB -bowel regimen Subjective ROS Limited/Unobtainable: No Allergies: Coded Allergies: No Known Allergies (Unverified , 05/26/18) Objective Last 24 Hour Vital Signs Date Time Temp Pulse Resp B/P (MAP) Pulse Ox O2 Delivery O2 Flow Rate FiO2 05/28/18 06:07 66 135/60 05/28/18 04:00 66 05/28/18 04:00 98.2 69 20 135/60 (85) 99 98.2 05/28/18 01:49 60 18 98 Nasal Cannula 2.0 28 05/28/18 01:39 36 05/28/18 01:39 61 18 97 Nasal Cannula 2.0 28 05/28/18 00:00 62 05/28/18 00:00 98.6 89 20 117/56 (76) 97 98.6 05/27/18 21:01 75 160/56 05/27/18 21:00 Nasal Cannula 2.0 05/27/18 20:11 75 20 98 Nasal Cannula 2.0 28 05/27/18 20:10 Nasal Cannula 2.0 28 05/27/18 20:10 97 Nasal Cannula 2.0 28 05/27/18 20:02 36 05/27/18 20:02 73 18 97 Nasal Cannula 2.0 28 05/27/18 20:00 99.7 74 20 160/56 (90) 96 99.7 05/27/18 20:00 63 05/27/18 17:47 178/64 05/27/18 16:00 68 05/27/18 16:00 98.2 64 20 176/60 (98) 95 98.2 05/27/18 13:59 64 169/58 05/27/18 13:59 169/58 05/27/18 12:00 97.9 64 20 169/58 (95) 99 97.9 05/27/18 12:00 62 05/27/18 09:53 Nasal Cannula 2.0 05/27/18 09:33 99 Nasal Cannula 2.0 28 05/27/18 09:32 Nasal Cannula 2.0 28 05/27/18 08:47 185/68 05/27/18 08:00 98.2 67 20 185/68 (107) 98 98.2 05/27/18 08:00 64 Intake and Output 05/27/18 05/28/18 19:00 07:00 Intake Total 270 ml Balance 270 ml Intake Oral 270 ml # Voids 2 2 Laboratory Tests 05/27/18 11:00: Sodium Level 130L, Potassium Level 3.7, Chloride Level 92L, Carbon Dioxide Level 29, Anion Gap 10, Blood Urea Nitrogen 27H, Creatinine 1.2, Estimat Glomerular Filtration Rate , Glucose Level 122H, Calcium Level 9.1 05/28/18 05:34: Sodium Level 129L, Potassium Level 3.6, Chloride Level 94L, Carbon Dioxide Level 29, Anion Gap 6, Blood Urea Nitrogen 18, Creatinine 0.9, Estimat Glomerular Filtration Rate , Glucose Level 120H, Calcium Level 9.1, White Blood Count 9.0, Red Blood Count 4.37, Hemoglobin 14.1, Hematocrit 39.6, Mean Corpuscular Volume 91, Mean Corpuscular Hemoglobin 32.3H, Mean Corpuscular Hemoglobin Concent 35.7, Red Cell Distribution Width 10.9L, Platelet Count 127L , Mean Platelet Volume 7.8, Neutrophils (%) (Auto) 76.0H, Lymphocytes (%) (Auto ) 13.1L, Monocytes (%) (Auto) 9.8, Eosinophils (%) (Auto) 0.3, Basophils (%) ( Auto) 0.8, Erythrocyte Sedimentation Rate [Pending], Prothrombin Time 12.6H, Prothromb Time International Ratio 1.2H, Activated Partial Thromboplast Time 27 , Phosphorus Level 2.5, Magnesium Level 2.3, Total Bilirubin 0.9, Aspartate Amino Transf (AST/SGOT) 363H, Alanine Aminotransferase (ALT/SGPT) 465H, Alkaline Phosphatase 81, Troponin I 0.052, Pro-B-Type Natriuretic Peptide 5574H , Total Protein 7.0, Albumin 3.8, Globulin 3.2, Albumin/Globulin Ratio 1.2, Cholesterol Level 131, Thyroid Stimulating Hormone (TSH) 2.396, Free Thyroxine 1.31, Anti-Nuclear Antibody Screen [Pending], SmRNP Antibodies [Pending], F- Actin IgG Antibody [Pending], Cytomegalovirus DNA PCR copies/ml [Pending], Cytomegalovirus DNA PCR log10 [Pending], Hepatitis A IgM Antibody [Pending], Hepatitis B Surface Antigen [Pending], Hepatitis B Core IgM Antibody [Pending], Hepatitis C Antibody [Pending], Herpes Simplex Virus I IgM Ab (IFA) [Pending], Herpes Simplex Virus II IgM Ab (IFA [Pending], Monoscreen [Pending] Height (Feet): 4 Height (Inches): 9.00 Weight (Pounds): 130 General Appearance: no apparent distress EENT: normal ENT inspection Neck: supple Cardiovascular: normal rate Respiratory/Chest: decreased breath sounds Abdomen: normal bowel sounds, non tender, soft Extremities: non-tender Wicho Andrew MD May 28, 2018 06:53
[2018-05-28 08:00] VITALS: BP 172/60
[2018-05-28] MEDS: Docusate 100mg cap ORAL SCH ×2 (08:19→22:11)
[2018-05-28] MEDS: Imdur 30mg tab ORAL SCH (08:19)
[2018-05-28] MEDS: Montelukast 10mg tablet ORAL SCH (08:19)
[2018-05-28] MEDS: cefTRIAXone 1 GM in D5W 55 ML IVPB SCH (08:21)
[2018-05-28] MEDS: Aspirin EC 81mg tab ORAL SCH (08:28)
[2018-05-28] MEDS: Heparin 5000 units/ml inj SUBQ SCH (09:00)
--- NOTE | 2018-05-28 11:19 | Pulmonology Progress Note ---
Assessment/Plan Problems: (1) Hypertensive emergency (2) Acute bronchitis (3) Hyponatremia (4) Hypertension Assessment/Plan bp is controlled better, down to 150 breathing better Na better ct chest abdomen/pelvis reviewed continue abx\ check cultures Subjective ROS Limited/Unobtainable: No Constitutional: Reports: no symptoms HEENT: Repors: no symptoms Respiratory: Reports: no symptoms Allergies: Coded Allergies: No Known Allergies (Unverified , 05/26/18) Objective Last 24 Hour Vital Signs Date Time Temp Pulse Resp B/P (MAP) Pulse Ox O2 Delivery O2 Flow Rate FiO2 05/28/18 09:00 Nasal Cannula 2.0 05/28/18 08:20 156/51 05/28/18 08:19 156/51 05/28/18 08:19 64 18 98 Nasal Cannula 2.0 28 05/28/18 08:14 63 18 97 Nasal Cannula 2.0 28 05/28/18 08:13 Nasal Cannula 2.0 28 05/28/18 08:13 97 Nasal Cannula 2.0 28 05/28/18 08:00 97.2 68 18 172/60 (97) 93 97.2 05/28/18 08:00 68 05/28/18 06:07 66 135/60 05/28/18 04:00 66 05/28/18 04:00 98.2 69 20 135/60 (85) 99 98.2 05/28/18 01:49 60 18 98 Nasal Cannula 2.0 28 05/28/18 01:39 36 05/28/18 01:39 61 18 97 Nasal Cannula 2.0 28 05/28/18 00:00 62 05/28/18 00:00 98.6 89 20 117/56 (76) 97 98.6 05/27/18 21:01 75 160/56 05/27/18 21:00 Nasal Cannula 2.0 05/27/18 20:11 75 20 98 Nasal Cannula 2.0 28 05/27/18 20:10 Nasal Cannula 2.0 28 05/27/18 20:10 97 Nasal Cannula 2.0 28 05/27/18 20:02 36 05/27/18 20:02 73 18 97 Nasal Cannula 2.0 28 05/27/18 20:00 99.7 74 20 160/56 (90) 96 99.7 9/14/18 20:00 63 05/27/18 17:47 178/64 05/27/18 16:00 68 05/27/18 16:00 98.2 64 20 176/60 (98) 95 98.2 05/27/18 13:59 64 169/58 05/27/18 13:59 169/58 05/27/18 12:00 97.9 64 20 169/58 (95) 99 97.9 05/27/18 12:00 62 Intake and Output 05/27/18 05/28/18 19:00 07:00 Intake Total 270 ml 100 ml Balance 270 ml 100 ml Intake Oral 270 ml 100 ml # Voids 2 2 General Appearance: WD/WN HEENT: normocephalic, atraumatic Respiratory/Chest: chest wall non-tender, lungs clear Breasts: no masses Cardiovascular: normal peripheral pulses Abdomen: normal bowel sounds, soft, non tender Genitourinary: normal external genitalia Extremities: no cyanosis Skin: no rash 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 Microbiology Date/Time Source Procedure Growth Status 05/27/18 17:00 Sputum Gram Stain - Final Resulted 05/27/18 17:00 Sputum Sputum Culture Pending Resulted 05/26/18 22:10 Urine,Clean Catch Urine Culture - Final NO GROWTH AFTER 48 HOURS Complete Laboratory Tests 05/28/18 05:34: White Blood Count 9.0, Red Blood Count 4.37, Hemoglobin 14.1, Hematocrit 39.6, Mean Corpuscular Volume 91, Mean Corpuscular Hemoglobin 32.3H, Mean Corpuscular Hemoglobin Concent 35.7, Red Cell Distribution Width 10.9L, Platelet Count 127L , Mean Platelet Volume 7.8, Neutrophils (%) (Auto) 76.0H, Lymphocytes (%) (Auto ) 13.1L, Monocytes (%) (Auto) 9.8, Eosinophils (%) (Auto) 0.3, Basophils (%) ( Auto) 0.8, Erythrocyte Sedimentation Rate 15, Prothrombin Time 12.6H, Prothromb Time International Ratio 1.2H, Activated Partial Thromboplast Time 27, Sodium Level 129L, Potassium Level 3.6, Chloride Level 94L, Carbon Dioxide Level 29, Anion Gap 6, Blood Urea Nitrogen 18, Creatinine 0.9, Estimat Glomerular Filtration Rate , Glucose Level 120H, Calcium Level 9.1, Phosphorus Level 2.5, Magnesium Level 2.3, Total Bilirubin 0.9, Aspartate Amino Transf (AST/SGOT) 363H , Alanine Aminotransferase (ALT/SGPT) 465H, Alkaline Phosphatase 81, Troponin I 0.052, Pro-B-Type Natriuretic Peptide 5574H, Total Protein 7.0, Albumin 3.8, Globulin 3.2, Albumin/Globulin Ratio 1.2, Cholesterol Level 131, Thyroid Stimulating Hormone (TSH) 2.396, Free Thyroxine 1.31, Anti-Nuclear Antibody Screen [Pending], SmRNP Antibodies [Pending], F-Actin IgG Antibody [Pending], Cytomegalovirus DNA PCR copies/ml [Pending], Cytomegalovirus DNA PCR log10 [ Pending], Hepatitis A IgM Antibody [Pending], Hepatitis B Surface Antigen [ Pending], Hepatitis B Core IgM Antibody [Pending], Hepatitis C Antibody [Pending ], Herpes Simplex Virus I IgM Ab (IFA) [Pending], Herpes Simplex Virus II IgM Ab (IFA [Pending], Monoscreen [Pending] Current Medications Medications (Trade) Dose Ordered Sig/Benedict Route PRN Reason Start Time Stop Time Status Last Admin Dose Admin Acetaminophen (Tylenol) 650 mg Q4H PRN ORAL Mild Pain (Pain Scale 1-3) 05/27/18 05:45 06/26/18 05:44 Albuterol/ Ipratropium (Albuterol/ Ipratropium) 3 ml Q4H PRN INH Shortness of Breath 05/27/18 05:45 06/01/18 05:44 Albuterol/ Ipratropium (Albuterol/ Ipratropium) 3 ml Q6HRT HHN 05/27/18 19:00 06/01/18 18:59 05/28/18 08:16 Aspirin (Ecotrin) 81 mg DAILY ORAL 05/27/18 09:00 06/26/18 08:59 05/28/18 08:28 Barium Sulfate (Readi-Cat 2) 450 ml NOW PRN ORAL Radiology Procedure 05/27/18 12:30 05/29/18 12:28 Bisacodyl (Dulcolax) 10 mg DAILYPRN PRN RECTAL Constipation 05/27/18 05:45 06/26/18 05:44 Ceftriaxone Sodium 1 gm/ Dextrose 55 ml @ 110 mls/hr DAILY IVPB 05/27/18 12:30 06/03/18 12:29 05/28/18 08:21 Dextrose (Dextrose 50%) 25 ml STAT PRN IV Hypoglycemia 05/27/18 05:45 06/26/18 05:44 Dextrose (Dextrose 50%) 50 ml STAT PRN IV Hypoglycemia 05/27/18 05:45 06/26/18 05:44 Diltiazem HCl (Cardizem) 30 mg EVERY 8 HOURS ORAL 05/27/18 14:00 06/26/18 13:59 05/28/18 06:07 Docusate Sodium (Colace) 100 mg EVERY 12 HOURS ORAL 05/27/18 09:00 06/26/18 08:59 05/28/18 08:19 Heparin Sodium (Porcine) (Heparin 5000 units/ml) 5,000 units EVERY 12 HOURS SUBQ 05/27/18 09:00 06/26/18 08:59 Hydralazine HCl (Apresoline) 10 mg Q6H PRN IV For High Blood Pressure 05/27/18 12:15 06/26/18 12:14 05/27/18 17:47 Iopamidol (Isovue-300 100ml) 100 ml NOW PRN INJ Radiology Procedure 05/27/18 12:30 05/29/18 12:29 Iopamidol (Isovue-300 100ml) 100 ml NOW PRN INJ Radiology Procedure 05/27/18 12:45 05/29/18 12:38 Irbesartan (Avapro) 75 mg DAILY ORAL 05/27/18 12:45 06/26/18 12:44 05/28/18 08:20 Isosorbide Mononitrate (Imdur) 30 mg DAILY ORAL 05/27/18 09:00 06/26/18 08:59 05/28/18 08:19 Montelukast Sodium (Singulair) 10 mg DAILY ORAL 05/27/18 09:00 06/26/18 08:59 05/28/18 08:19 Nitroglycerin (Ntg) 0.4 mg Q5M PRN SL Prn Chest Pain 05/27/18 05:45 06/26/18 05:44 Ondansetron HCl (Zofran) 4 mg Q6H PRN IVP Nausea & Vomiting 05/27/18 05:45 06/26/18 05:44 05/27/18 21:00 Pantoprazole (Protonix) 40 mg DAILY ORAL 05/27/18 09:00 06/26/18 08:59 05/28/18 08:19 Polyethylene Glycol (Miralax) 17 gm DAILYPRN PRN ORAL Constipation 05/27/18 05:45 06/26/18 05:44 Promethazine HCl/ Codeine (Phenergan with Codeine) 5 ml Q4H PRN ORAL For Cough 05/27/18 13:15 06/26/18 13:14 Zolpidem Tartrate (Ambien) 5 mg BEDTIME PRN ORAL Insomnia 05/27/18 05:45 06/03/18 05:44 Tyson Vincent MD May 28, 2018 11:19
[2018-05-28 12:00] VITALS: BP 167/57
--- NOTE | 2018-05-28 12:22 | Cardiac Electrophysiology PN ---
Assessment/Plan Assessment/Plan 1. Troponin elevation. It could be due to renal failure. The patient does not have any chest pain. However, the patient's EKG showed some repolarization abnormality. 2nd troponin was negative. ECho EF 60% 2. Atrial fibrillation with slow ventricular response. Heart rate was in the 40s. Now in 60s. Continue Cardizem 30 tid. Start Eliquis 5 bid 3. Elevated BNP of more than 10,000. ECho EF 60%. 4. Hypertension. Continue Avapro 75, Imdur and Cardizem 5. Abdominal pain. 6. Urinary tract infection, on IV antibiotics. Subjective Subjective In atrial fib in 70s.No CP or SOB. RN at bedside Objective Last 24 Hour Vital Signs Date Time Temp Pulse Resp B/P (MAP) Pulse Ox O2 Delivery O2 Flow Rate FiO2 05/28/18 09:00 Nasal Cannula 2.0 05/28/18 08:20 156/51 05/28/18 08:19 156/51 05/28/18 08:19 64 18 98 Nasal Cannula 2.0 28 05/28/18 08:14 63 18 97 Nasal Cannula 2.0 28 05/28/18 08:13 Nasal Cannula 2.0 28 05/28/18 08:13 97 Nasal Cannula 2.0 28 05/28/18 08:00 97.2 68 18 172/60 (97) 93 97.2 05/28/18 08:00 68 05/28/18 06:07 66 135/60 05/28/18 04:00 66 05/28/18 04:00 98.2 69 20 135/60 (85) 99 98.2 05/28/18 01:49 60 18 98 Nasal Cannula 2.0 28 05/28/18 01:39 36 05/28/18 01:39 61 18 97 Nasal Cannula 2.0 28 05/28/18 00:00 62 05/28/18 00:00 98.6 89 20 117/56 (76) 97 98.6 05/27/18 21:01 75 160/56 05/27/18 21:00 Nasal Cannula 2.0 05/27/18 20:11 75 20 98 Nasal Cannula 2.0 28 05/27/18 20:10 Nasal Cannula 2.0 28 05/27/18 20:10 97 Nasal Cannula 2.0 28 9/14/18 20:02 36 05/27/18 20:02 73 18 97 Nasal Cannula 2.0 28 05/27/18 20:00 99.7 74 20 160/56 (90) 96 99.7 05/27/18 20:00 63 05/27/18 17:47 178/64 05/27/18 16:00 68 05/27/18 16:00 98.2 64 20 176/60 (98) 95 98.2 05/27/18 13:59 64 169/58 05/27/18 13:59 169/58 Intake and Output 05/27/18 05/28/18 19:00 07:00 Intake Total 270 ml 100 ml Balance 270 ml 100 ml Intake Oral 270 ml 100 ml # Voids 2 2 Laboratory Tests Test 05/28/18 05:34 White Blood Count 9.0 K/UL (4.8-10.8) Red Blood Count 4.37 M/UL (4.20-5.40) Hemoglobin 14.1 G/DL (12.0-16.0) Hematocrit 39.6 % (37.0-47.0) Mean Corpuscular Volume 91 FL (80-99) Mean Corpuscular Hemoglobin 32.3 PG (27.0-31.0) H Mean Corpuscular Hemoglobin Concent 35.7 G/DL (32.0-36.0) Red Cell Distribution Width 10.9 % (11.6-14.8) L Platelet Count 127 K/UL (150-450) L Mean Platelet Volume 7.8 FL (6.5-10.1) Neutrophils (%) (Auto) 76.0 % (45.0-75.0) H Lymphocytes (%) (Auto) 13.1 % (20.0-45.0) L Monocytes (%) (Auto) 9.8 % (1.0-10.0) Eosinophils (%) (Auto) 0.3 % (0.0-3.0) Basophils (%) (Auto) 0.8 % (0.0-2.0) Erythrocyte Sedimentation Rate 15 MM/HR (0-30) Prothrombin Time 12.6 SEC (9.30-11.50) H Prothromb Time International Ratio 1.2 (0.9-1.1) H Activated Partial Thromboplast Time 27 SEC (23-33) Sodium Level 129 MMOL/L (136-145) L Potassium Level 3.6 MMOL/L (3.5-5.1) Chloride Level 94 MMOL/L (98-107) L Carbon Dioxide Level 29 MMOL/L (21-32) Anion Gap 6 mmol/L (5-15) Blood Urea Nitrogen 18 mg/dL (7-18) Creatinine 0.9 MG/DL (0.55-1.30) Estimat Glomerular Filtration Rate mL/min (>60) Glucose Level 120 MG/DL (74-106) H Calcium Level 9.1 MG/DL (8.5-10.1) Phosphorus Level 2.5 MG/DL (2.5-4.9) Magnesium Level 2.3 MG/DL (1.8-2.4) Total Bilirubin 0.9 MG/DL (0.2-1.0) Aspartate Amino Transf (AST/SGOT) 363 U/L (15-37) H Alanine Aminotransferase (ALT/SGPT) 465 U/L (12-78) H Alkaline Phosphatase 81 U/L (46-116) Troponin I 0.052 ng/mL (0.000-0.056) Pro-B-Type Natriuretic Peptide 5574 pg/mL (0-125) H Total Protein 7.0 G/DL (6.4-8.2) Albumin 3.8 G/DL (3.4-5.0) Globulin 3.2 g/dL Albumin/Globulin Ratio 1.2 (1.0-2.7) Cholesterol Level 131 MG/DL (< 200) Thyroid Stimulating Hormone (TSH) 2.396 uiU/mL (0.358-3.740) Free Thyroxine 1.31 NG/DL (0.76-1.46) Anti-Nuclear Antibody Screen Pending SmRNP Antibodies Pending F-Actin IgG Antibody Pending Cytomegalovirus DNA PCR copies/ml Pending Cytomegalovirus DNA PCR log10 Pending Hepatitis A IgM Antibody Pending Hepatitis B Surface Antigen Pending Hepatitis B Core IgM Antibody Pending Hepatitis C Antibody Pending Herpes Simplex Virus I IgM Ab (IFA) Pending Herpes Simplex Virus II IgM Ab (IFA Pending Monoscreen Pending Microbiology Date/Time Source Procedure Growth Status 05/27/18 17:00 Sputum Gram Stain - Final Resulted 05/27/18 17:00 Sputum Sputum Culture Pending Resulted 9/13/18 22:10 Urine,Clean Catch Urine Culture - Final NO GROWTH AFTER 48 HOURS Complete Objective HEAD AND NECK: Shows no JVD. LUNGS: Clear. CARDIOVASCULAR: Shows irregular S1 and S2 and bradycardic. ABDOMEN: Soft. EXTREMITIES: A 1+ pitting edema. Faisal Levy MD May 28, 2018 12:22
[2018-05-28 16:00] VITALS: BP 139/60
--- NOTE | 2018-05-28 16:17 | Internal Med Progress Note ---
Subjective Date of Service: May 28, 2018 Physician Name EnedeliaDante Attending Physician Nba Hilario MD Current Medications Medications (Trade) Dose Ordered Sig/Benedict Route PRN Reason Start Time Stop Time Status Last Admin Dose Admin Acetaminophen (Tylenol) 650 mg Q4H PRN ORAL Mild Pain (Pain Scale 1-3) 05/27/18 05:45 06/26/18 05:44 05/28/18 11:30 Albuterol/ Ipratropium (Albuterol/ Ipratropium) 3 ml Q4H PRN INH Shortness of Breath 05/27/18 05:45 06/01/18 05:44 Albuterol/ Ipratropium (Albuterol/ Ipratropium) 3 ml Q6HRT HHN 05/27/18 19:00 06/01/18 18:59 05/28/18 12:49 Apixaban (Eliquis) 5 mg BID ORAL 05/28/18 18:00 06/27/18 17:59 Aspirin (Ecotrin) 81 mg DAILY ORAL 05/27/18 09:00 06/26/18 08:59 05/28/18 08:28 Barium Sulfate (Readi-Cat 2) 450 ml NOW PRN ORAL Radiology Procedure 05/27/18 12:30 05/29/18 12:28 Bisacodyl (Dulcolax) 10 mg DAILYPRN PRN RECTAL Constipation 05/27/18 05:45 06/26/18 05:44 Ceftriaxone Sodium 1 gm/ Dextrose 55 ml @ 110 mls/hr DAILY IVPB 05/27/18 12:30 06/03/18 12:29 05/28/18 08:21 Dextrose (Dextrose 50%) 25 ml STAT PRN IV Hypoglycemia 05/27/18 05:45 06/26/18 05:44 Dextrose (Dextrose 50%) 50 ml STAT PRN IV Hypoglycemia 05/27/18 05:45 06/26/18 05:44 Diltiazem HCl (Cardizem) 30 mg EVERY 8 HOURS ORAL 05/27/18 14:00 06/26/18 13:59 05/28/18 14:07 Docusate Sodium (Colace) 100 mg EVERY 12 HOURS ORAL 05/27/18 09:00 06/26/18 08:59 05/28/18 08:19 Hydralazine HCl (Apresoline) 10 mg Q6H PRN IV For High Blood Pressure 05/27/18 12:15 06/26/18 12:14 05/27/18 17:47 Iopamidol (Isovue-300 100ml) 100 ml NOW PRN INJ Radiology Procedure 05/27/18 12:30 05/29/18 12:29 Iopamidol (Isovue-300 100ml) 100 ml NOW PRN INJ Radiology Procedure 05/27/18 12:45 05/29/18 12:38 Irbesartan (Avapro) 75 mg DAILY ORAL 05/27/18 12:45 06/26/18 12:44 05/28/18 08:20 Isosorbide Mononitrate (Imdur) 30 mg DAILY ORAL 05/27/18 09:00 06/26/18 08:59 05/28/18 08:19 Montelukast Sodium (Singulair) 10 mg DAILY ORAL 05/27/18 09:00 06/26/18 08:59 05/28/18 08:19 Nitroglycerin (Ntg) 0.4 mg Q5M PRN SL Prn Chest Pain 05/27/18 05:45 06/26/18 05:44 Ondansetron HCl (Zofran) 4 mg Q6H PRN IVP Nausea & Vomiting 05/27/18 05:45 06/26/18 05:44 05/27/18 21:00 Pantoprazole (Protonix) 40 mg DAILY ORAL 05/27/18 09:00 06/26/18 08:59 05/28/18 08:19 Polyethylene Glycol (Miralax) 17 gm DAILYPRN PRN ORAL Constipation 05/27/18 05:45 06/26/18 05:44 Promethazine HCl/ Codeine (Phenergan with Codeine) 5 ml Q4H PRN ORAL For Cough 05/27/18 13:15 06/26/18 13:14 Zolpidem Tartrate (Ambien) 5 mg BEDTIME PRN ORAL Insomnia 05/27/18 05:45 06/03/18 05:44 Allergies: Coded Allergies: No Known Allergies (Unverified , 05/26/18) ROS Limited/Unobtainable: No Constitutional: Reports: no symptoms HEENT: Reports: no symptoms Cardiovascular: Reports: no symptoms Respiratory: Reports: no symptoms Gastrointestinal/Abdominal: Reports: no symptoms Genitourinary: Reports: no symptoms Neurologic/Psychiatric: Reports: no symptoms Subjective 87 YO F admitted with syncope and shortness of breath. Cover for Int Medicine, Dr Hilario Objective Last Vital Signs Date Time Temp Pulse Resp B/P (MAP) Pulse Ox O2 Delivery O2 Flow Rate FiO2 05/28/18 14:07 64 167/57 05/28/18 13:00 18 99 Nasal Cannula 2.0 28 05/28/18 12:00 97.9 97.9 General Appearance: WD/WN, no apparent distress, alert EENT: PERRL/EOMI, normal ENT inspection, TMs normal Neck: non-tender, normal alignment, supple, normal inspection Cardiovascular: normal peripheral pulses, normal rate, regular rhythm, no gallop/murmur, no JVD Respiratory/Chest: chest wall non-tender, lungs clear, normal breath sounds, no respiratory distress, no accessory muscle use Abdomen: normal bowel sounds, non tender, soft, no organomegaly, no mass Extremities: normal range of motion, non-tender Neurologic: metal framer II-XII grossly normal, no motor/sensory deficits Skin: normal pigmentation Laboratory Tests Test 05/28/18 05:34 White Blood Count 9.0 K/UL (4.8-10.8) Red Blood Count 4.37 M/UL (4.20-5.40) Hemoglobin 14.1 G/DL (12.0-16.0) Hematocrit 39.6 % (37.0-47.0) Mean Corpuscular Volume 91 FL (80-99) Mean Corpuscular Hemoglobin 32.3 PG (27.0-31.0) H Mean Corpuscular Hemoglobin Concent 35.7 G/DL (32.0-36.0) Red Cell Distribution Width 10.9 % (11.6-14.8) L Platelet Count 127 K/UL (150-450) L Mean Platelet Volume 7.8 FL (6.5-10.1) Neutrophils (%) (Auto) 76.0 % (45.0-75.0) H Lymphocytes (%) (Auto) 13.1 % (20.0-45.0) L Monocytes (%) (Auto) 9.8 % (1.0-10.0) Eosinophils (%) (Auto) 0.3 % (0.0-3.0) Basophils (%) (Auto) 0.8 % (0.0-2.0) Erythrocyte Sedimentation Rate 15 MM/HR (0-30) Prothrombin Time 12.6 SEC (9.30-11.50) H Prothromb Time International Ratio 1.2 (0.9-1.1) H Activated Partial Thromboplast Time 27 SEC (23-33) Sodium Level 129 MMOL/L (136-145) L Potassium Level 3.6 MMOL/L (3.5-5.1) Chloride Level 94 MMOL/L (98-107) L Carbon Dioxide Level 29 MMOL/L (21-32) Anion Gap 6 mmol/L (5-15) Blood Urea Nitrogen 18 mg/dL (7-18) Creatinine 0.9 MG/DL (0.55-1.30) Estimat Glomerular Filtration Rate mL/min (>60) Glucose Level 120 MG/DL (74-106) H Calcium Level 9.1 MG/DL (8.5-10.1) Phosphorus Level 2.5 MG/DL (2.5-4.9) Magnesium Level 2.3 MG/DL (1.8-2.4) Total Bilirubin 0.9 MG/DL (0.2-1.0) Aspartate Amino Transf (AST/SGOT) 363 U/L (15-37) H Alanine Aminotransferase (ALT/SGPT) 465 U/L (12-78) H Alkaline Phosphatase 81 U/L (46-116) Troponin I 0.052 ng/mL (0.000-0.056) Pro-B-Type Natriuretic Peptide 5574 pg/mL (0-125) H Total Protein 7.0 G/DL (6.4-8.2) Albumin 3.8 G/DL (3.4-5.0) Globulin 3.2 g/dL Albumin/Globulin Ratio 1.2 (1.0-2.7) Cholesterol Level 131 MG/DL (< 200) Thyroid Stimulating Hormone (TSH) 2.396 uiU/mL (0.358-3.740) Free Thyroxine 1.31 NG/DL (0.76-1.46) Anti-Nuclear Antibody Screen Pending SmRNP Antibodies Pending F-Actin IgG Antibody Pending Cytomegalovirus DNA PCR copies/ml Pending Cytomegalovirus DNA PCR log10 Pending Hepatitis A IgM Antibody Pending Hepatitis B Surface Antigen Pending Hepatitis B Core IgM Antibody Pending Hepatitis C Antibody Pending Herpes Simplex Virus I IgM Ab (IFA) Pending Herpes Simplex Virus II IgM Ab (IFA Pending Monoscreen Pending Microbiology Date/Time Source Procedure Growth Status 05/27/18 17:00 Sputum Gram Stain - Final Resulted 05/27/18 17:00 Sputum Sputum Culture Pending Resulted 05/26/18 22:10 Urine,Clean Catch Urine Culture - Final NO GROWTH AFTER 48 HOURS Complete Intake and Output 05/27/18 05/28/18 19:00 07:00 Intake Total 270 ml 100 ml Balance 270 ml 100 ml Intake Oral 270 ml 100 ml # Voids 2 2 Assessment/Plan Problem List: (1) Syncope (2) Vertigo (3) HTN (hypertension) Assessment & Plan: Continue avapro and diltiazem (4) Atrial fibrillation Assessment & Plan: Continue eliquis. (5) Acute exacerbation of CHF (congestive heart failure) (6) UTI (urinary tract infection) Assessment & Plan: Await urine culture result. Continue ceftriaxone (7) Dyspnea (8) Hyponatremia (9) CKD (chronic kidney disease) Status: not improved Dante Mcdaniels MD May 28, 2018 16:17
[2018-05-28] MEDS ORDERED: NS 275ml ONE (16:27)
[2018-05-28] MEDS ORDERED: Tubing IV Secondary IV ONE (16:27)
[2018-05-28] MEDS: Eliquis 2.5mg tablet ORAL SCH (18:00)
[2018-05-28 20:00] VITALS: BP 155/53
[2018-05-29] VITALS: BP 165/88
[2018-05-29] MEDS: Albuterol/Ipratropium 3ml neb HHN SCH ×2 (01:33→09:19)
[2018-05-29 04:00] VITALS: BP 119/56
[2018-05-29] MEDS: dilTIAZem HCl 30mg tab ORAL SCH ×2 (06:00→13:47)
--- NOTE | 2018-05-29 07:41 | General Progress Note ---
Assessment/Plan Assessment/Plan Assessment - Nausea - Weight loss - Transaminitis, ? etiology - Negative CT imaging, s/p kayla state -constipation Recommendations - minimize medication, avoid hepatotoxic meds - fu hepatitis serologies - fu viral markers - fu autoimmune markers - follow LFT - check stool OB -bowel regimen Subjective ROS Limited/Unobtainable: No Allergies: Coded Allergies: No Known Allergies (Unverified , 05/26/18) Objective Last 24 Hour Vital Signs Date Time Temp Pulse Resp B/P (MAP) Pulse Ox O2 Delivery O2 Flow Rate FiO2 05/29/18 06:00 80 119/56 05/29/18 04:00 98.2 80 18 119/56 (77) 96 98.2 05/29/18 04:00 80 05/29/18 02:09 165/88 05/29/18 01:34 Room Air 21 05/29/18 01:34 Room Air 21.0 05/29/18 00:00 97.0 86 20 165/88 (113) 93 97.0 05/29/18 00:00 86 05/28/18 22:11 68 155/53 05/28/18 21:00 Nasal Cannula 2.0 05/28/18 20:05 68 16 98 Room Air 21 05/28/18 20:00 70 05/28/18 20:00 98.6 70 22 155/53 (87) 94 98.6 05/28/18 19:54 Room Air 21 05/28/18 19:54 93 Room Air 21 05/28/18 19:54 70 18 93 Room Air 21 05/28/18 16:00 70 05/28/18 16:00 98.2 69 18 139/60 (86) 99 98.2 05/28/18 14:07 64 167/57 05/28/18 13:00 64 18 99 Nasal Cannula 2.0 28 05/28/18 12:49 64 18 97 Nasal Cannula 2.0 28 05/28/18 12:00 67 05/28/18 12:00 97.9 70 18 167/57 (93) 96 97.9 05/28/18 09:00 Nasal Cannula 2.0 05/28/18 08:20 156/51 05/28/18 08:19 156/51 05/28/18 08:19 64 18 98 Nasal Cannula 2.0 28 05/28/18 08:14 63 18 97 Nasal Cannula 2.0 28 05/28/18 08:13 Nasal Cannula 2.0 28 05/28/18 08:13 97 Nasal Cannula 2.0 28 05/28/18 08:00 97.2 68 18 172/60 (97) 93 97.2 05/28/18 08:00 68 Intake and Output 05/28/18 05/29/18 19:00 07:00 Intake Total 600 ml 100 ml Balance 600 ml 100 ml Intake Oral 600 ml 100 ml Laboratory Tests 05/29/18 07:05: White Blood Count [Pending], Red Blood Count [Pending], Hemoglobin [Pending], Hematocrit [Pending], Mean Corpuscular Volume [Pending], Mean Corpuscular Hemoglobin [Pending], Mean Corpuscular Hemoglobin Concent [Pending], Red Cell Distribution Width [Pending], Platelet Count [Pending], Mean Platelet Volume [ Pending], Neutrophils (%) (Auto) [Pending], Lymphocytes (%) (Auto) [Pending], Monocytes (%) (Auto) [Pending], Eosinophils (%) (Auto) [Pending], Basophils (%) (Auto) [Pending], Sodium Level [Pending], Potassium Level [Pending], Chloride Level [Pending], Carbon Dioxide Level [Pending], Blood Urea Nitrogen [Pending], Creatinine [Pending], Estimat Glomerular Filtration Rate [Pending], Glucose Level [Pending], Calcium Level [Pending], Phosphorus Level [Pending], Magnesium Level [Pending], Total Bilirubin [Pending], Aspartate Amino Transf (AST/SGOT) [ Pending], Alanine Aminotransferase (ALT/SGPT) [Pending], Alkaline Phosphatase [ Pending], Total Protein [Pending], Albumin [Pending], Globulin [Pending] Height (Feet): 4 Height (Inches): 9.00 Weight (Pounds): 130 General Appearance: no apparent distress EENT: normal ENT inspection Neck: supple Cardiovascular: normal rate Respiratory/Chest: decreased breath sounds Abdomen: normal bowel sounds, non tender, soft Extremities: non-tender Wicho Andrew MD May 29, 2018 07:41
[2018-05-29 07:47] LABS: BASOPHILS % (AUTO) 0.5 % (0.0-2.0); EOSINOPHILS % (AUTO) 0.3 % (0.0-3.0); HEMATOCRIT 40.1 % (37.0-47.0); HEMOGLOBIN 14.3 G/DL (12.0-16.0); LYMPHOCYTES % (AUTO) 13.6 % (20.0-45.0); MEAN CORPUSCULAR VOLUME 91 FL (80-99); MONOCYTES % (AUTO) 12.3 % (1.0-10.0); NEUTROPHILS % (AUTO) 73.3 % (45.0-75.0); PLATELET COUNT 155 K/UL (150-450); RED BLOOD COUNT 4.43 M/UL (4.20-5.40); RED CELL DISTRIBUTION WIDTH 11.1 % (11.6-14.8)
[2018-05-29 08:00] VITALS: BP 149/57
[2018-05-29 08:11] LABS: ALANINE AMINOTRANSFERASE 464 U/L (12-78); ALBUMIN 3.6 G/DL (3.4-5.0); ALBUMIN/GLOBULIN RATIO 1.1 (1.0-2.7); ALKALINE PHOSPHATASE 74 U/L (46-116); ANION GAP 11 mmol/L (5-15); ASPARTATE AMINO TRANSFERASE 309 U/L (15-37); BILIRUBIN,TOTAL 0.9 MG/DL (0.2-1.0); BLOOD UREA NITROGEN 11 mg/dL (7-18); CALCIUM 8.9 MG/DL (8.5-10.1); CARBON DIOXIDE 27 MMOL/L (21-32); CHLORIDE 95 MMOL/L (98-107); CREATININE 0.8 MG/DL (0.55-1.30); POTASSIUM 3.3 MMOL/L (3.5-5.1); SODIUM 133 MMOL/L (136-145)
[2018-05-29 08:27] LABS: PHOSPHORUS 2.7 MG/DL (2.5-4.9)
[2018-05-29] MEDS: Docusate 100mg cap ORAL SCH (08:39)
[2018-05-29] MEDS: Aspirin EC 81mg tab ORAL SCH (08:39)
[2018-05-29] MEDS: cefTRIAXone 1 GM in D5W 55 ML IVPB SCH (08:39)
[2018-05-29] MEDS: Eliquis 2.5mg tablet ORAL SCH (08:42)
[2018-05-29] MEDS: Montelukast 10mg tablet ORAL SCH (08:42)
[2018-05-29] MEDS: Imdur 30mg tab ORAL SCH (08:42)
--- NOTE | 2018-05-29 11:15 | Consultation ---
DATE OF CONSULTATION: 05/27/2018 GASTROENTEROLOGY CONSULTATION CONSULTING PHYSICIAN: Osman Enriquez M.D. CHIEF COMPLAINT: I was asked to see this patient by Dr. Nba Hilario, for evaluation of abnormal liver tests. HISTORY OF PRESENT ILLNESS: The patient is a pleasant 87-year-old Persian woman with a stgkm-bv-baxr-month history of nausea and occasional vomiting. The patient has noted some weight loss because of the above. She has no chills and no abdominal pain. Her bowel sounds are every other day and she has not seen any physician for this purpose. She had normal previous gastrointestinal history and her last colonoscopy was about ten years ago. The patient has had her gallbladder removed. The patient was admitted to the hospital due to a syncopal episode and this has been felt to be due to atrial fibrillation with bradycardia, which is being evaluated and treated separately. She also has significant degree of hyponatremia in her admission laboratories. The patient's admission laboratory evaluation also showed significant degree of transaminitis of unclear etiology. CT scan of the abdomen and pelvis did not show any mass, lesion in the liver, but did show an absent gallbladder and otherwise, there are no significant gastrointestinal pathology. PAST MEDICAL HISTORY: History of hypertension, congestive heart failure, atrial fibrillation, history of cataract surgery, status post cholecystectomy. FAMILY HISTORY: Noncontributory. SOCIAL HISTORY: The patient does not smoke or drink. REVIEW OF SYSTEMS: Otherwise negative. MEDICATIONS: See chart list for details. PHYSICAL EXAMINATION: GENERAL: This is a pleasant 87-year-old woman, seen in her room. HEENT: Normocephalic and atraumatic. Sclerae anicteric. Oropharynx clear. NECK: Supple. CHEST: Clear to auscultation. CARDIOVASCULAR: Revealed regular rate. ABDOMEN: Soft and nontender. Good bowel sounds. There is no organomegaly. EXTREMITIES: Revealed no edema. LABORATORY DATA: Noted. ASSESSMENT: This patient presents with nausea, intermittent vomiting, and marked transaminitis, which are likely related to issues. The patient's CPK is normal and therefore rhabdomyolysis is ruled out. She also has no mass, lesions in the liver with a contrast CT scan. History of could possibly be related to her bradycardia and arrhythmia, but no clear hypotensive episodes were reported. Alternatively, she may have some type of infection, hepatitis, which would fit the timeframe. Unfortunately hepatitis A or B or some type of other viral hepatitis mononucleosis would fit the picture. The patient will have to undergo a serological evaluation for viral pathologies, which were typical for liver infections. 04:14 medications should be avoided and medications should be minimized as much as possible. The patient's vascular anatomy to the liver was already evaluated with a contrast CT scan. I doubt if this is from thrombosis of any vessels related to the liver. If transaminases continued to be elevated and blood workup is negative, then a liver biopsy would be indicated. Autoimmune pathology will also be checked and serologies. RECOMMENDATIONS: Per above discussion and per orders written in the chart. Thank you for asking me to participate in the care of this patient. Osman Enriquez M.D. DR: ALICIA JOB#: [id number] CC:
[2018-05-29 12:00] VITALS: BP 136/62
--- NOTE | 2018-05-29 13:11 | Pulmonology Progress Note ---
Assessment/Plan Problems: (1) Hypertensive emergency (2) Acute bronchitis (3) Hyponatremia (4) Hypertension Assessment/Plan bp is controlled better, down to 150 breathing better Na better ct chest abdomen/pelvis reviewed continue abx\ check cultures Subjective ROS Limited/Unobtainable: No Constitutional: Reports: no symptoms Respiratory: Reports: no symptoms Allergies: Coded Allergies: No Known Allergies (Unverified , 05/26/18) Objective Last 24 Hour Vital Signs Date Time Temp Pulse Resp B/P (MAP) Pulse Ox O2 Delivery O2 Flow Rate FiO2 05/29/18 12:00 89 05/29/18 12:00 97.1 84 18 136/62 (86) 97 97.1 05/29/18 09:24 69 18 99 Nasal Cannula 2.0 28 05/29/18 09:19 Nasal Cannula 2.0 28 05/29/18 09:19 72 18 98 Nasal Cannula 2.0 28 05/29/18 09:19 97 Nasal Cannula 2.0 28 05/29/18 08:42 149/57 05/29/18 08:41 149/57 05/29/18 08:00 98.2 97 18 149/57 (87) 98.2 05/29/18 08:00 106 05/29/18 08:00 Nasal Cannula 2.0 05/29/18 06:00 80 119/56 05/29/18 04:00 98.2 80 18 119/56 (77) 96 98.2 05/29/18 04:00 80 05/29/18 02:09 165/88 05/29/18 01:34 Room Air 21 05/29/18 01:34 Room Air 21.0 05/29/18 00:00 97.0 86 20 165/88 (113) 93 97.0 05/29/18 00:00 86 05/28/18 22:11 68 155/53 05/28/18 21:00 Nasal Cannula 2.0 05/28/18 20:05 68 16 98 Room Air 21 05/28/18 20:00 70 05/28/18 20:00 98.6 70 22 155/53 (87) 94 98.6 05/28/18 19:54 Room Air 21 05/28/18 19:54 93 Room Air 21 05/28/18 19:54 70 18 93 Room Air 21 05/28/18 16:00 70 05/28/18 16:00 98.2 69 18 139/60 (86) 99 98.2 05/28/18 14:07 64 167/57 Intake and Output 05/28/18 05/29/18 19:00 07:00 Intake Total 600 ml 100 ml Balance 600 ml 100 ml Intake Oral 600 ml 100 ml Objective General Appearance: WD/WN HEENT: normocephalic, atraumatic Respiratory/Chest: chest wall non-tender, lungs clear Breasts: no masses Cardiovascular: normal peripheral pulses, irregular Abdomen: normal bowel sounds, soft, non tender Genitourinary: normal external genitalia Extremities: no clubbing Skin: no rash Neurologic/Psychiatric: software quality assurance engineer II-XII grossly normal Lymphatic: no neck adenopathy Microbiology Date/Time Source Procedure Growth Status 05/27/18 17:00 Sputum Gram Stain - Final Resulted 05/27/18 17:00 Sputum Sputum Culture - Preliminary NORMAL UPPER RESPIRATORY KIRILL PRESENT Resulted 05/26/18 22:10 Urine,Clean Catch Urine Culture - Final NO GROWTH AFTER 48 HOURS Complete Laboratory Tests 05/29/18 07:05: White Blood Count 8.0, Red Blood Count 4.43, Hemoglobin 14.3, Hematocrit 40.1, Mean Corpuscular Volume 91, Mean Corpuscular Hemoglobin 32.4H, Mean Corpuscular Hemoglobin Concent 35.8, Red Cell Distribution Width 11.1L, Platelet Count 155, Mean Platelet Volume 6.8, Neutrophils (%) (Auto) 73.3, Lymphocytes (%) (Auto) 13.6L, Monocytes (%) (Auto) 12.3H, Eosinophils (%) (Auto) 0.3, Basophils (%) ( Auto) 0.5, Sodium Level 133L, Potassium Level 3.3L, Chloride Level 95L, Carbon Dioxide Level 27, Anion Gap 11, Blood Urea Nitrogen 11, Creatinine 0.8, Estimat Glomerular Filtration Rate , Glucose Level 124H, Calcium Level 8.9, Phosphorus Level 2.7, Magnesium Level 2.3, Total Bilirubin 0.9, Aspartate Amino Transf (AST /SGOT) 309H, Alanine Aminotransferase (ALT/SGPT) 464H, Alkaline Phosphatase 74, Total Protein 6.9, Albumin 3.6, Globulin 3.3, Albumin/Globulin Ratio 1.1 Current Medications Medications (Trade) Dose Ordered Sig/Benedict Route PRN Reason Start Time Stop Time Status Last Admin Dose Admin Acetaminophen (Tylenol) 650 mg Q4H PRN ORAL Mild Pain (Pain Scale 1-3) 05/27/18 05:45 06/26/18 05:44 05/28/18 11:30 Albuterol/ Ipratropium (Albuterol/ Ipratropium) 3 ml Q4H PRN INH Shortness of Breath 05/27/18 05:45 06/01/18 05:44 Albuterol/ Ipratropium (Albuterol/ Ipratropium) 3 ml Q6HRT HHN 05/27/18 19:00 06/01/18 18:59 05/29/18 09:19 Apixaban (Eliquis) 5 mg BID ORAL 05/28/18 18:00 06/27/18 17:59 05/29/18 08:42 Aspirin (Ecotrin) 81 mg DAILY ORAL 05/27/18 09:00 06/26/18 08:59 05/29/18 08:39 Bisacodyl (Dulcolax) 10 mg DAILYPRN PRN RECTAL Constipation 05/27/18 05:45 06/26/18 05:44 Ceftriaxone Sodium 1 gm/ Dextrose 55 ml @ 110 mls/hr DAILY IVPB 05/27/18 12:30 06/03/18 12:29 05/29/18 08:39 Dextrose (Dextrose 50%) 25 ml STAT PRN IV Hypoglycemia 05/27/18 05:45 06/26/18 05:44 Dextrose (Dextrose 50%) 50 ml STAT PRN IV Hypoglycemia 05/27/18 05:45 06/26/18 05:44 Diltiazem HCl (Cardizem) 30 mg EVERY 8 HOURS ORAL 05/27/18 14:00 06/26/18 13:59 05/28/18 22:11 Docusate Sodium (Colace) 100 mg EVERY 12 HOURS ORAL 05/27/18 09:00 06/26/18 08:59 05/29/18 08:39 Hydralazine HCl (Apresoline) 10 mg Q6H PRN IV For High Blood Pressure 05/27/18 12:15 06/26/18 12:14 05/29/18 02:09 Irbesartan (Avapro) 75 mg DAILY ORAL 05/27/18 12:45 06/26/18 12:44 05/29/18 08:41 Isosorbide Mononitrate (Imdur) 30 mg DAILY ORAL 05/27/18 09:00 06/26/18 08:59 05/29/18 08:42 Montelukast Sodium (Singulair) 10 mg DAILY ORAL 05/27/18 09:00 06/26/18 08:59 05/29/18 08:42 Nitroglycerin (Ntg) 0.4 mg Q5M PRN SL Prn Chest Pain 05/27/18 05:45 06/26/18 05:44 Ondansetron HCl (Zofran) 4 mg Q6H PRN IVP Nausea & Vomiting 05/27/18 05:45 06/26/18 05:44 05/27/18 21:00 Pantoprazole (Protonix) 40 mg DAILY ORAL 05/27/18 09:00 06/26/18 08:59 05/29/18 08:42 Polyethylene Glycol (Miralax) 17 gm DAILYPRN PRN ORAL Constipation 05/27/18 05:45 06/26/18 05:44 Promethazine HCl/ Codeine (Phenergan with Codeine) 5 ml Q4H PRN ORAL For Cough 05/27/18 13:15 06/26/18 13:14 Zolpidem Tartrate (Ambien) 5 mg BEDTIME PRN ORAL Insomnia 05/27/18 05:45 06/03/18 05:44 Tyson Vincent MD May 29, 2018 13:11
[2018-05-29 13:47] VITALS: BP 149/57
--- NOTE | 2018-05-29 15:12 | Internal Med Progress Note ---
Subjective Date of Service: May 29, 2018 Physician Name Dante Mcdaniels Attending Physician Nba Hilario MD Allergies: Coded Allergies: No Known Allergies (Unverified , 05/26/18) ROS Limited/Unobtainable: No Constitutional: Reports: no symptoms HEENT: Reports: no symptoms Cardiovascular: Reports: no symptoms Respiratory: Reports: no symptoms Gastrointestinal/Abdominal: Reports: no symptoms Genitourinary: Reports: no symptoms Neurologic/Psychiatric: Reports: no symptoms Subjective 87 YO F admitted with syncope and shortness of breath. Cover for Int Medicine, Dr Hilario Objective Last Vital Signs Date Time Temp Pulse Resp B/P (MAP) Pulse Ox O2 Delivery O2 Flow Rate FiO2 05/29/18 13:47 130 149/57 05/29/18 12:00 97.1 18 97 97.1 05/29/18 09:24 Nasal Cannula 2.0 28 Laboratory Tests Test 05/29/18 07:05 White Blood Count 8.0 K/UL (4.8-10.8) Red Blood Count 4.43 M/UL (4.20-5.40) Hemoglobin 14.3 G/DL (12.0-16.0) Hematocrit 40.1 % (37.0-47.0) Mean Corpuscular Volume 91 FL (80-99) Mean Corpuscular Hemoglobin 32.4 PG (27.0-31.0) H Mean Corpuscular Hemoglobin Concent 35.8 G/DL (32.0-36.0) Red Cell Distribution Width 11.1 % (11.6-14.8) L Platelet Count 155 K/UL (150-450) Mean Platelet Volume 6.8 FL (6.5-10.1) Neutrophils (%) (Auto) 73.3 % (45.0-75.0) Lymphocytes (%) (Auto) 13.6 % (20.0-45.0) L Monocytes (%) (Auto) 12.3 % (1.0-10.0) H Eosinophils (%) (Auto) 0.3 % (0.0-3.0) Basophils (%) (Auto) 0.5 % (0.0-2.0) Sodium Level 133 MMOL/L (136-145) L Potassium Level 3.3 MMOL/L (3.5-5.1) L Chloride Level 95 MMOL/L (98-107) L Carbon Dioxide Level 27 MMOL/L (21-32) Anion Gap 11 mmol/L (5-15) Blood Urea Nitrogen 11 mg/dL (7-18) Creatinine 0.8 MG/DL (0.55-1.30) Estimat Glomerular Filtration Rate mL/min (>60) Glucose Level 124 MG/DL (74-106) H Calcium Level 8.9 MG/DL (8.5-10.1) Phosphorus Level 2.7 MG/DL (2.5-4.9) Magnesium Level 2.3 MG/DL (1.8-2.4) Total Bilirubin 0.9 MG/DL (0.2-1.0) Aspartate Amino Transf (AST/SGOT) 309 U/L (15-37) H Alanine Aminotransferase (ALT/SGPT) 464 U/L (12-78) H Alkaline Phosphatase 74 U/L (46-116) Total Protein 6.9 G/DL (6.4-8.2) Albumin 3.6 G/DL (3.4-5.0) Globulin 3.3 g/dL Albumin/Globulin Ratio 1.1 (1.0-2.7) Microbiology Date/Time Source Procedure Growth Status 05/27/18 17:00 Sputum Gram Stain - Final Resulted 05/27/18 17:00 Sputum Sputum Culture - Preliminary NORMAL UPPER RESPIRATORY KIRILL PRESENT Resulted 05/26/18 22:10 Urine,Clean Catch Urine Culture - Final NO GROWTH AFTER 48 HOURS Complete Intake and Output 05/28/18 05/29/18 19:00 07:00 Intake Total 600 ml 100 ml Balance 600 ml 100 ml Intake Oral 600 ml 100 ml Objective General Appearance: WD/WN, no apparent distress, alert EENT: PERRL/EOMI, normal ENT inspection, TMs normal Neck: non-tender, normal alignment, supple, normal inspection Cardiovascular: normal peripheral pulses, normal rate, regular rhythm, no gallop/murmur, no JVD Respiratory/Chest: chest wall non-tender, lungs clear, normal breath sounds, no respiratory distress, no accessory muscle use Abdomen: normal bowel sounds, non tender, soft, no organomegaly, no mass Extremities: normal range of motion, non-tender Neurologic: evaluation engineer II-XII grossly normal, no motor/sensory deficits Skin: normal pigmentation Assessment/Plan Problem List: (1) Syncope (2) Vertigo (3) HTN (hypertension) Assessment & Plan: Continue avapro and diltiazem (4) Atrial fibrillation Assessment & Plan: Continue eliquis. (5) Acute exacerbation of CHF (congestive heart failure) (6) UTI (urinary tract infection) Assessment & Plan: Await urine culture result. Continue ceftriaxone (7) Dyspnea (8) Hyponatremia (9) CKD (chronic kidney disease) Assessment/Plan Discharge home today Dante Mcdaniels MD May 29, 2018 15:12
--- NOTE | 2018-05-29 15:49 | Cardiology Report ---
APPROVED REPORT EKG Measurement Heart [id number] Sinus rhythm with 1st degree AV block Left ventricular hypertrophy with repolarization abnormality Prolonged QT Abnormal ECG
--- NOTE | 2018-05-29 15:55 | Cardiology Report ---
APPROVED REPORT EKG Measurement Heart [id number] Sinus rhythm with 1st degree AV block Voltage criteria for left ventricular hypertrophy Prolonged QT Abnormal ECG
--- NOTE | 2018-05-30 11:12 | Cardiology Report ---
APPROVED REPORT EXAM: Two-dimensional and M-mode echocardiogram with Doppler and color Doppler. INDICATION Congestive Heart Failure Normal left ventricular chamber size, systolic function and wall motion. Left ventricular ejection fraction estimated to be 60 %. Borderline left ventricular hypertrophy. Anterior Echo-free space, may be due to pericardial fat or effusion. All other cardiac chamber sizes are within normal limits. Aortic valve calcification with decreased cusp excursion c/w mild aortic stenosis. Thickened mitral valve leaflets with normal excursion. Mitral annulus and aortic root calcification. Pulmonic valve not well visualized. Normal tricuspid valve structure. IVC at normal size with physiologic collapse. 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 A color flow and spectral Doppler study was performed and revealed: Mild to moderate aortic regurgitation. Peak aortic valve gradient of 28 mm Hg and a mean of 12 mmHg. Mild mitral regurgitation. Can not determine left ventricular diastolic function by mitral diastolic velocities due to atrial fibrillation. Mild tricuspid regurgitation. Tricuspid systolic velocities suggests peak right ventricular systolic pressure of 43 mmHg, consistent with mild pulmonary hypertension. Pulmonic regurgitation present.
--- NOTE | 2018-05-31 12:47 | Discharge Summary ---
Discharge Summary Discharge Summary _ DATE OF ADMISSION: 05/26/2018 DATE OF DISCHARGE: In 05/29/2018 REASON FOR ADMISSION: 87 years old female with past medical history significant for hypertension, atrial fibrillation, congestive heart failure, presented to emergency on room complaining of syncopal episode. Patient also reported intermittent abdominal pain associated with nausea and vomiting for months. Patient also was using inhaler without any relief. She reported not able to breathe well. Upon evaluation in emergency department patient noted to be in atrial fibrillation with slow ventricular response; heart rate of 43. Blood pressure elevated 180/70 . Chest x-ray revealed mild cardiomegaly Possible left pleural effusion. Ectatic and possibly aneurysmal thoracic aorta. Mild pulmonary vascular congestion. Pro BNP 68584, troponin 0.066. WBC 12, stable hemoglobin and hematocrit . Sodium 122, potassium 5.4 . BUN 34 ,creatinine 1.8 . AST 971, ALT 512. Urinalysis revealed pyuria, but no evidence of bacteria . Patient admitted for further management with diagnoses of acute on chronic congestive heart failure ,possible UTI ,abnormal LFT ,epigastric pain, acute hyponatremia, hyperkalemia ,acute kidney injury, atrial fibrillation with bradycardia, hypertensive urgency, acute bronchitis. CONSULTANTS: diesel engine mechanic apprentice Dr. Levy pulmonary Dr. Vincent GI specialist Dr. Enriquez psychiatrist [facility] COURSE: Patient admitted to monitored floor. Patient started on diuresis with intravenous Lasix. Volumes and cardiorenal parameters were closely monitored. Electrolytes were corrected as needed. Hyponatremia workup initiated. Prior to discharge sodium up to 133, potassium down to 3.3, replaced prior to discharge. Echocardiogram revealed preserved ejection fraction of 60% and right ventricular systolic pressure of 43 consistent with mild pulmonary hypertension. No evidence of wall motion abnormality. Cooling Tower Operator closely followed. Rate was controlled with Cardizem. Patient started on anticoagulation with Eliquis. Blood pressure was managed with angiotensin receptor val, calcium channel val and Imdur. Blood pressure stabilized with current regimen. Initial troponin was positive. Per diesel engine mechanic apprentice, mild elevation in troponin probably due to troponin leak secondary to renal failure. Patient had no cardiac complaints. Second troponin was negative. Pro BNP trended down. Cowlman closely followed. Patient was treated for acute bronchitis. Supplemental oxygen provided as needed to keep pulse oximetry above 92%. Pulmonary toilet with bronchodilator provided. DVT prophylaxis provided prior to Eliquis started, and then heparin was discontinued . Antitussive provided as needed. GI specialist closely followed. Patient with evidence of weight loss, transaminitis and nausea. Symptomatic treatment provided. Antiemetics provided as needed. Diet started as tolerated, able to tolerate. GI prophylaxis provided. Bowel regimen instituted. LFT trending down, still elevated. Hepatitis panel was negative. TIP screen still pending. Viral serology showed positive cytomegalovirus DNA copies. HSV and monoscreen negative . Recommended to follow-up LFT as outpatient and minimize drugs potentially causing transaminitis. CT of chest, abdomen and pelvis revealed no definite acute thoracic, abdominal or pelvic process. Borderline aneurysmal dilatation of the ascending thoracic aorta and aortic arch. No evidence of dissection, leakage or rupture Dilated main pulmonary artery, consistent with pulmonary arterial hypertension Mild rectal fecal distention, could represent very early rectal fecal impaction Colonic diverticulosis. No evidence of diverticulitis Incidental findings include degenerative spondylosis, prior cholecystectomy, somewhat atrophic pancreas. Renal parameters and electrolytes were closely monitored . Nephrotoxins were avoided. Acute kidney injury resolved , prior to discharge BUN 11, creatinine 0.8. Patient started initially on empiric antibiotics for possible UTI and acute bronchitis. . Urine culture negative, sputum culture revealed Rosa Maria. Antibiotics discontinued. Syncopal episode was likely secondary to acute hyponatremia, possible CHF exacerbation and generalzied weakness. Patient was working woth physical and occupational therapists. Prior to discharge walker was provided for patient. Patient was stable for discharge FINAL DIAGNOSES: Acute on chronic congestive heart failure Acute hyponatremia Acute kidney injury Atrial fibrillation with slow ventricular response Hypertensive urgency Acute bronchitis Constipation Transaminitis Weight loss DISCHARGE MEDICATIONS: See Medication Reconciliation list. DISCHARGE INSTRUCTIONS: Patient was discharged home . Follow up with primary care provider in one week. Walker provided. r I have been assigned to dictate discharge summary for this account. I was not involved in the patient's management. Kathia Jacobs NP May 31, 2018 12:47
--- NOTE | 2018-05-31 16:24 | Psych Consult Progress Note ---
Psych Consult Progress Note Consult 05/29/18 [place] [facility] [place] d/o -cont current meds -provided ro/Martin Escobar MD May 31, 2018 16:24
== END 2018-05-29 14:52 | disposition home or self-care (01) | DRG 291 ==
LOC: EDBD 21:33 → EMR 22:03 → EDBEDREQ 23:15 → 2E 23:47
DX: I13.0 Hypertensive heart and chronic kidney disease with heart failure and stage 1 through stage 4 chronic kidney disease, or unspecified chronic kidney disease (principal); G93.40 Encephalopathy, unspecified; E87.1 Hypo-osmolality and hyponatremia; N17.9 Acute kidney failure, unspecified; N39.0 Urinary tract infection, site not specified; I16.0 Hypertensive urgency; N18.9 Chronic kidney disease, unspecified; I50.9 Heart failure, unspecified; J20.9 Acute bronchitis, unspecified; R10.13 Epigastric pain; I48.91 Unspecified atrial fibrillation; R00.1 Bradycardia, unspecified; I27.20 Pulmonary hypertension, unspecified; K59.00 Constipation, unspecified; R74.0 Nonspecific elevation of levels of transaminase and lactic acid dehydrogenase [LDH]; R63.4 Abnormal weight loss; I25.10 Atherosclerotic heart disease of native coronary artery without angina pectoris; F41.9 Anxiety disorder, unspecified; R55 Syncope and collapse; R42 Dizziness and giddiness; K57.90 Diverticulosis of intestine, part unspecified, without perforation or abscess without bleeding; R11.0 Nausea
CPT/HCPCS: 36415; 71045; 71260; 74177; 76770; 80048; 80053; 81003; 82465; 82550; 82553; 83735; 83880; 84100; 84439; 84443; 84484; 85025; 85610; 85651; 85730; 86039; 86235; 86308; 86695; 86705; 86709; 86803; 87070; 87086; 87205; 87340; 87497; 93005; 93306; 94640; 94664; 94760; 96365; 96375; 99285; J2405; J7620